=== PATIENT | female | born 1940 | race Caucasian/White ===

== ENCOUNTER → 2016-05-26 | Outpatient (CLI) | payer OTHER ==
[2016-05-26 09:36] LABS: HEMATOCRIT 36.8 % (37-47); MEAN CORPUSCULAR HEMOGLOBIN 28.9 pg (25-34); MEAN PLATELET VOLUME 10.3 fL (7.4-10.4); PLATELET COUNT 308 K/uL (130-400); RED BLOOD COUNT 4.33 M/uL (4.2-5.4); WHITE BLOOD COUNT 5.07 K/uL (4.8-10.8)
[2016-05-26 09:46] LABS: ALT/SGPT 17 U/L (12-78); AST/SGOT 14 U/L (15-37); BLOOD UREA NITROGEN 23 mg/dl (7-18); CALCIUM 8.8 mg/dl (8.5-10.1); CARBON DIOXIDE 30 mmol/L (21-32); CHLORIDE 105 mmol/L (98-107); GLUCOSE 84 mg/dl (70-99); POTASSIUM 4.7 mmol/L (3.5-5.1); SODIUM 143 mmol/L (136-145)
[2016-05-26 09:57] LABS: ALB/GLOB RATIO 0.8 (0.9-2); ALKALINE PHOSPHATASE 78 U/L (45-117)
--- NOTE | 2016-06-05 08:10 | CODING QUERY NO DIAGNOSIS ---
TREATMENT RENDERED WITHOUT A DIAGNOSIS : 1940 To promote full compliance with coding requirements relating to patient care, physician participation is requested in all cases of senior program analyst uncertainty. Please assist us with providing a diagnosis/symptom for the test(s) below: A diagnosis/symptom was not documented on your Order. A valid diagnosis/symptom is required to bill all insurances. Please remember that we are unable to code a diagnosis of rule out, probable, possible, questionable, or suspected. DOS: 05/26/16 Tests that require a diagnosis: * COMPREHENSIVE METABO DIAGNOSIS: * THRYOID STIMULATING DIAGNOSIS: * CBC W/O DIFF DIAGNOSIS: * VITAMIN B12 DIAGNOSIS: * VITAMIN D, 25-HYDROXY DIAGNOSIS: Provider Signature: Date: Thank you Pina Cannon [facility] Information Management Once completed, please kindly fax back to [phone] For questions please call [phone]
--- NOTE | 2016-06-17 12:30 | CODING QUERY MEDICAL NECESSITY ---
SUPPORTING DIAGNOSIS NEEDED Dr. Dsouza, A supporting diagnosis is required for the test/procedure performed on this patient in order for us to be reimbursed by the patient's insurance. Please provide a supporting diagnosis for the following test/procedure listed below next to the test name along with your signature. *If there is no additional diagnosis for this patient that would support the following test/procedure please document that below next to the test/procedure. Test(s)/Procedure(s) that require a supporting diagnosis: * ([id number]) B12 VITAMIN LEVEL DIAGNOSIS: DATE OF SERVICE: 05/26/16 Provider Signature: Date: Thank you Sammy Kunz [facility] Information Management Once completed, please kindly fax back to [phone] For questions please call [phone]
== END ==
LOC: C.LABUPUNI 09:08
PROVIDERS: ATTEND Family Medicine
DX: I10 Essential (primary) hypertension (principal); F41.9 Anxiety disorder, unspecified; E03.9 Hypothyroidism, unspecified; D64.9 Anemia, unspecified; E55.9 Vitamin D deficiency, unspecified; E13.9 Other specified diabetes mellitus without complications; F32.9 Major depressive disorder, single episode, unspecified

== ENCOUNTER → 2016-08-24 | Outpatient (CLI) | payer OTHER ==
--- NOTE | 2016-08-25 14:13 | CODING QUERY NO DIAGNOSIS ---
: 1940 TREATMENT RENDERED WITHOUT A DIAGNOSIS To promote full compliance with coding requirements relating to patient care, physician participation is requested in all cases of hcc coders uncertainty. Please assist us with providing a diagnosis/symptom for the test(s) below: A diagnosis/symptom was not documented on your Order. A valid diagnosis/symptom is required to bill all insurances. Please remember that we are unable to code a diagnosis of rule out, probable, possible, questionable, or suspected. Tests that require a diagnosis: DOS: 08/24/16 * Vitamin D, 25-Hydroxy DIAGNOSIS: Provider Signature: Date: Thank you Candace Craft [facility] Information Management Once completed, please kindly fax back to [phone] For questions please call [phone]
== END | disposition home or self-care (01) ==
LOC: C.LABUPUNI 09:30
PROVIDERS: ATTEND Family Medicine
DX: E55.9 Vitamin D deficiency, unspecified (principal)

== ENCOUNTER → 2016-09-11 | Outpatient (CLI) | payer OTHER | LOC: C.LABUPUNI 09:38 | PROVIDERS: ATTEND Family Medicine | DX: E03.9 Hypothyroidism, unspecified (principal) ==

== ENCOUNTER → 2016-10-15 | Outpatient (CLI) | payer OTHER ==
[2016-10-15 10:53] LABS: URINE APPEARANCE CLEAR (CLEAR); URINE BILIRUBIN NEG (NEG); URINE COLOR YELLOW; URINE NITRITE NEG (NEG); URINE SPECIFIC GRAVITY 1.014 (1.000-1.030); UROBILINOGEN NEG (NEG); ZZUR CULT IF INDIC CLEAN CATCH NO
[2016-10-15 10:56] LABS: MANUAL MICROSCOPIC REQUIRED? NO; REVIEW REQ? NO
== END ==
LOC: C.LABUPUNI 09:52
PROVIDERS: ATTEND Nurse Practitioner Family
DX: N39.0 Urinary tract infection, site not specified (principal)

== ENCOUNTER → 2016-11-06 | Outpatient (CLI) | payer OTHER ==
--- NOTE | 2016-11-25 07:19 | CODING QUERY MEDICAL NECESSITY ---
SUPPORTING DIAGNOSIS NEEDED Yonny PELAYO, A supporting diagnosis is required for the test/procedure performed on this patient in order for us to be reimbursed by the patient's insurance. Please provide a supporting diagnosis for the following test/procedure listed below next to the test name along with your signature. *If there is no additional diagnosis for this patient that would support the following test/procedure please document that below next to the test/procedure. Test(s)/Procedure(s) that require a supporting diagnosis: * ([id number]) B12 VITAMIN LEVEL DIAGNOSIS: DATE OF SERVICE: 11/06/16 Provider Signature: Date: Thank you Sammy Kunz Health Information Management Once completed, please kindly fax back to [phone] For questions please call [phone]
== END ==
LOC: C.LABUPNIT 07:48
PROVIDERS: ATTEND Nurse Practitioner Family
DX: E56.8 Deficiency of other vitamins (principal)

== ENCOUNTER → 2016-11-24 | Outpatient (CLI) | payer OTHER ==
--- NOTE | 2016-12-02 08:17 | CODING QUERY MEDICAL NECESSITY ---
SUPPORTING DIAGNOSIS NEEDED A supporting diagnosis is required for the test/procedure performed on this patient in order for us to be reimbursed by the patient's insurance. Please provide a supporting diagnosis for the following test/procedure listed below next to the test name along with your signature. *If there is no additional diagnosis for this patient that would support the following test/procedure please document that below next to the test/procedure. Test(s)/Procedure(s) that require a supporting diagnosis: * VITAMIN D, 25-HYDROXY DIAGNOSIS: Provider Signature: Date: Thank you Nancy Bolivar [employer] Information Management Once completed, please kindly fax back to [phone] For questions please call [phone]
== END ==
LOC: C.LABUPUNI 10:01
PROVIDERS: ATTEND Nurse Practitioner Family
DX: E56.8 Deficiency of other vitamins (principal); E55.9 Vitamin D deficiency, unspecified

== ENCOUNTER → 2017-01-08 | Outpatient (CLI) | payer OTHER ==
[2017-01-08 09:41] LABS: CHOLESTEROL/HDL RATIO 2.8; THYROID STIMULATING HORMONE 4.59 uIu/ml (0.300-4.500)
== END ==
LOC: C.LABUPUNI 08:13
PROVIDERS: ATTEND Nurse Practitioner Family
DX: E03.9 Hypothyroidism, unspecified (principal); E78.5 Hyperlipidemia, unspecified

== ENCOUNTER → 2017-03-12 | Outpatient (CLI) | payer OTHER | LOC: C.LABUPUNI 08:04 | PROVIDERS: ATTEND Nurse Practitioner Family | DX: E56.8 Deficiency of other vitamins (principal) ==

== ENCOUNTER → 2017-05-04 | Outpatient (CLI) | payer OTHER | END | disposition home or self-care (01) | LOC: C.LABUPUNI 08:11 | PROVIDERS: ATTEND Nurse Practitioner Family | DX: E03.9 Hypothyroidism, unspecified (principal) ==

== ENCOUNTER → 2017-06-12 | Outpatient (CLI) | payer OTHER | LOC: C.LABUPUNI 12:10 | PROVIDERS: ATTEND Nurse Practitioner Family | DX: E56.8 Deficiency of other vitamins (principal) ==

== ENCOUNTER → 2017-08-02 | Outpatient (CLI) | payer OTHER | END | disposition home or self-care (01) | LOC: C.LABUPUNI 08:17 | PROVIDERS: ATTEND Nurse Practitioner Family | DX: E03.9 Hypothyroidism, unspecified (principal) ==

== ENCOUNTER → 2017-09-09 | Outpatient (CLI) | payer OTHER | LOC: C.LABUPUNI 08:35 | PROVIDERS: ATTEND Nurse Practitioner Family | DX: E56.8 Deficiency of other vitamins (principal) ==

== ENCOUNTER → 2017-11-09 | Outpatient (CLI) | payer OTHER ==
[~2017-11-09] MED LIST: ACET-1311 PO; ACET-1693 PO; ALBINS/ INH; ASPI81TA28 PO; ATEN-173 PO; ATEN-175 PO; ATOR10TA82 PO; BISA10SU3 PR; CARBSOL4 OPB; CEFD300C2 PO; CHOL20009; DEXT20CA PO; DIVA1TAB86 PO; DIVA250T93 PO; GUAIFENESIN PO; IMD/2 PO; KLN/5 PO; LEVO100T PO; LISI-729 PO; MELO-84 PO; MOML PO; NAPR1TAB9 PO; QUET1TAB32 PO; TRAZ50TA35 PO
[2017-11-09 09:33] LABS: BASO % 0.6 %; BASO ABS # 0.03 K/uL (0-0.2); EOS ABS # 0.21 K/uL (0-0.5); HEMATOCRIT 34.6 % (37-47); HEMOGLOBIN 11.7 g/dL (12.0-16.0); IG# 0.01 K/uL (0.00-0.02); LYMPH ABS # 1.63 K/uL (1.2-3.4); MEAN CELL VOLUME 87.8 fL (80-100); MEAN CORPUSCULAR HEMOGLOBIN 29.7 pg (25-34); MEAN CORPUSCULAR HGB CONC 33.8 g/dl (32-36); MEAN PLATELET VOLUME 9.8 fL (7.4-10.4); MONO % 8.6 %; MONO ABS # 0.45 K/uL (0.11-0.59); NEUT % 55.6 %; NEUT ABS # 2.92 K/uL (1.4-6.5); PLATELET COUNT 350 K/uL (130-400); RED CELL DISTRIBUTION WIDTH CV 13.2 % (11.5-14.5); RED CELL DISTRIBUTION WIDTH SD 42.8 fL (36.4-46.3); WHITE BLOOD COUNT 5.25 K/uL (4.8-10.8)
== END ==
LOC: C.LABUPUNI 09:08
PROVIDERS: ATTEND Nurse Practitioner Family
DX: F03.91 Unspecified dementia, unspecified severity, with behavioral disturbance (principal)

== ENCOUNTER → 2017-11-10 | Outpatient (CLI) | payer OTHER ==
[2017-11-10 10:03] LABS: BLOOD UREA NITROGEN 22 mg/dl (7-18); CALCIUM 8.7 mg/dl (8.5-10.1); CARBON DIOXIDE 29 mmol/L (21-32); CREATININE 1.09 mg/dl (0.60-1.20); GLUCOSE 84 mg/dl (70-99); POTASSIUM 4.6 mmol/L (3.5-5.1); SODIUM 129 mmol/L (136-145)
== END | disposition home or self-care (01) ==
LOC: C.LABUPUNI 09:04
PROVIDERS: ATTEND Nurse Practitioner Family
DX: E03.9 Hypothyroidism, unspecified (principal); F33.8 Other recurrent depressive disorders; Z51.81 Encounter for therapeutic drug level monitoring; Z79.899 Other long term (current) drug therapy

== ENCOUNTER → 2017-11-30 | Outpatient (CLI) | payer OTHER | LOC: C.LABUPUNI 13:49 | PROVIDERS: ATTEND Nurse Practitioner Family | DX: N36.9 Urethral disorder, unspecified (principal) ==

== ENCOUNTER 2017-12-01 13:32 | Emergency (ER) | payer OTHER ==
[~2017-12-01] VITALS: Ht 165.1 cm; Wt 74.2 kg
[2017-12-01 13:49] VITALS: TEMP 36.4; Ht 165.1 cm; Wt 74.2 kg
--- NOTE | 2017-12-01 14:38 | DIAGNOSTIC IMAGING REPORT ---
CT SCAN OF THE BRAIN WITHOUT IV CONTRAST CLINICAL HISTORY: Weakness. Change in mental status. COMPARISON STUDY: No priors. TECHNIQUE: Unenhanced axial CT scan of the brain is performed from the vertex to the skull base. A dose lowering technique was utilized adhering to the principles of ALARA. The patient was scanned twice due to motion artifact. Motion artifact compromises the examination. CT DOSE: 900.28 mGy.cm FINDINGS: Brain parenchyma: There are age-related involutional changes noting mild to moderate patchy subcortical and periventricular microangiopathic change. There is no hemorrhage, mass effect, or evidence of acute territorial ischemia by CT criteria. Brasher-white matter is preserved. No extra-axial fluid collection is seen. Ventricles, sulci, cisterns: Prominent secondary to involutional change. Intracranial vasculature: There is atherosclerotic calcification of the cavernous carotid and vertebral arteries. Calvarium: Unremarkable. Sinuses and mastoids: The visualized paranasal sinuses are clear. The mastoid air cells are well pneumatized. Orbits: The bony orbits are grossly intact. IMPRESSION: There is no hemorrhage, mass effect, or evidence of acute territorial ischemia by CT criteria noting a motion compromised examination. Electronically signed by: Yair Parmar M.D. 12/01/2017 2:37 PM Dictated Date/Time: 12/01/2017 2:33 PM
--- NOTE | 2017-12-01 14:41 | DIAGNOSTIC IMAGING REPORT ---
SINGLE VIEW CHEST CLINICAL HISTORY: Weakness. Change in mental status. FINDINGS: An AP, portable, upright chest radiograph is obtained. No prior studies are available for comparison at the time of dictation. The examination is degraded by portable technique and patient rotation. The cardiomediastinal silhouette is unremarkable noting atherosclerotic calcification of the thoracic aorta. Nonspecific interstitial thickening is likely chronic. Trace pleural effusions are suspected with bibasilar atelectasis. No airspace consolidation is seen typical for pneumonia. No pneumothorax is seen. The skeletal structures are osteopenic. The bony thorax is grossly intact. IMPRESSION: 1. There is no airspace consolidation typical for pneumonia. 2. Suspect trace pleural effusions. Electronically signed by: Yair Parmar M.D. 12/01/2017 2:40 PM Dictated Date/Time: 12/01/2017 2:39 PM
[2017-12-01 15:09] LABS: BASO % 0.5 %; BASO ABS # 0.04 K/uL (0-0.2); EOS % 2.7 %; EOS ABS # 0.22 K/uL (0-0.5); HEMATOCRIT 35.8 % (37-47); HEMOGLOBIN 12.2 g/dL (12.0-16.0); LYMPH % 21.6 %; LYMPH ABS # 1.75 K/uL (1.2-3.4); MEAN CELL VOLUME 88.4 fL (80-100); MEAN CORPUSCULAR HEMOGLOBIN 30.1 pg (25-34); MEAN CORPUSCULAR HGB CONC 34.1 g/dl (32-36); MEAN PLATELET VOLUME 9.3 fL (7.4-10.4); MONO % 9.2 %; MONO ABS # 0.75 K/uL (0.11-0.59); NEUT ABS # 5.36 K/uL (1.4-6.5); PLATELET COUNT 320 K/uL (130-400); RED CELL DISTRIBUTION WIDTH CV 13.1 % (11.5-14.5); RED CELL DISTRIBUTION WIDTH SD 42.7 fL (36.4-46.3); WHITE BLOOD COUNT 8.12 K/uL (4.8-10.8)
[2017-12-01 15:38] LABS: ALBUMIN 3.4 gm/dl (3.4-5.0); ALKALINE PHOSPHATASE 74 U/L (45-117); ALT/SGPT 17 U/L (12-78); AST/SGOT 20 U/L (15-37); BLOOD UREA NITROGEN 25 mg/dl (7-18); CARBON DIOXIDE 28 mmol/L (21-32); GLUCOSE 96 mg/dl (70-99); POTASSIUM 4.4 mmol/L (3.5-5.1); SODIUM 131 mmol/L (136-145); TOTAL PROTEIN 7.4 gm/dl (6.4-8.2)
[2017-12-01] MEDS ORDERED: LISI-729 PO (15:48)
[2017-12-01] MEDS ORDERED: ATEN-175 PO (15:48)
[2017-12-01] MEDS ORDERED: DIVA1TAB86 PO (15:48)
[2017-12-01] MEDS ORDERED: ATEN-173 PO (15:48)
[2017-12-01] MEDS ORDERED: ATOR10TA82 PO (15:48)
[2017-12-01] MEDS ORDERED: LEVO100T PO (15:48)
[2017-12-01] MEDS ORDERED: ASPI81TA28 PO (15:48)
[2017-12-01] MEDS ORDERED: CEFTRIAXONE SOD INJ 1 GM ADDVIAL IV STA (16:04)
[2017-12-01] MEDS ORDERED: SODIUM CHLORIDE 0.9% 500ML 500 ML IV STA (16:06)
[2017-12-01] MEDS ORDERED: ALBINS/ INH (16:15)
[2017-12-01] MEDS ORDERED: DEXT20CA PO (16:15)
[2017-12-01] MEDS ORDERED: BISA10SU3 PR (16:15)
[2017-12-01] MEDS ORDERED: MOML PO (16:15)
[2017-12-01] MEDS ORDERED: IMD/2 PO (16:15)
[2017-12-01] MEDS ORDERED: MELO-84 PO (16:15)
[2017-12-01] MEDS ORDERED: NAPR1TAB9 PO (16:15)
[2017-12-01] MEDS ORDERED: CARBSOL4 OPB (16:15)
[2017-12-01] MEDS ORDERED: CHOL20009 (16:15)
[2017-12-01] MEDS ORDERED: KLN/5 PO (16:15)
[2017-12-01] MEDS ORDERED: QUET1TAB32 PO (16:15)
[2017-12-01] MEDS ORDERED: DIVA250T93 PO (16:15)
[2017-12-01] MEDS ORDERED: GUAIFENESIN PO (16:15)
[2017-12-01] MEDS ORDERED: TRAZ50TA35 PO (16:15)
[2017-12-01] MEDS ORDERED: ACET-1693 PO (16:15)
[2017-12-01] MEDS ORDERED: ACET-1311 PO (16:15)
[2017-12-01 17:04] VITALS: BP 164/80; PULSE 93; O2SAT 99
--- NOTE | 2017-12-01 17:05 | DIAGNOSTIC IMAGING REPORT ---
ABD/PELVIS NO IV OR ORAL CONT CT DOSE: 920.90 mGy.cm HISTORY: Hematuria hematuria TECHNIQUE: Multiaxial CT images of the abdomen and pelvis were performed without contrast. A dose lowering technique was utilized adhering to the principles of ALARA. COMPARISON STUDY: None. FINDINGS: Limited exam as the patient could not tolerate the procedure. Minimal bibasilar interstitial change. Liver spleen and pancreas are grossly unremarkable. Kidneys negative for calcification or hydronephrosis. The bowel pattern throughout is considered nonobstructive. Bladder is midline. There are no bladder calcifications. Inguinal regions are unremarkable. There is no evidence for pneumatosis or free air. IMPRESSION: No acute process. The above report was generated using voice recognition software. It may contain grammatical, syntax or spelling errors. Electronically signed by: Dallin Watson M.D. 12/01/2017 5:03 PM Dictated Date/Time: 12/01/2017 5:01 PM
[2017-12-01] MEDS ORDERED: CEFD300C2 PO (17:29)
--- NOTE | 2017-12-01 18:21 | EMERGENCY ROOM VISIT NOTE ---
History Report prepared by Darrell: Caitlyn Alcaraz Under the Supervision of: Dr. Jace Anguiano D.O. First contact with patient: 13:52 Chief Complaint: MENTAL HEALTH EVALUATION Stated Complaint: MENTAL HEALTH History of Present Illness The patient is a 77 year old female who presents to the Emergency Room for a mental health evaluation. Per the psych casework specialist, the patient is fixated on chocolate milk. She reports that the patient has Dementia and recently had a UTI on November 09. She states that the patient has had increased confusion and the home she stays at is concerned it is due to another UTI. She notes that the patient is on Depakote and recently had a medication change due to her recent repetitive statement of "chocolate milk" starting yesterday. The patient states that she just wants "chocolate milk." She reports that she is unsure what building she is in, but knows that the year is "chocolate milk" and she was [place] the city [place] The patient notes that she has taken all her medications today. The patient denies fever and shortness of breath. Source of History: patient, nursing staff Onset: yesterday Position: head Quality: other (mental helath) Timing: worsening Associated Symptoms: No fevers, No SOB Note: The patient's senior care complains of the patient having increased confusion. Review of Systems See HPI for pertinent positives & negatives. A total of 10 systems reviewed and were otherwise negative. Past Medical & Surgical Medical Problems: (1) Dementia (2) Hx: UTI (urinary tract infection) Family History No pertinent family history Social History Smoking Status: Unknown if Ever Smoked Marital Status: single Housing Status: senior care Occupation Status: retired Current/Historical Medications Scheduled Acetaminophen Tab (Tylenol), 650 MG PO TID Aspirin (Aspirin Ec), 81 MG PO DAILY Atenolol (Tenormin), 25 MG PO DAILY Atorvastatin (Lipitor), 10 MG PO QPM Bisacodyl (Dulcolax), 1 SUPP [place] PRN UD Cefdinir (Omnicef), 300 MG PO Q12H Cholecalciferol (Vitamin D), 2 TABS DAILY Clonazepam (Klonopin), 0.25 MG PO BID Dextromethorphan Hbr-Quinidine (Nuedexta), 1 CAP PO DAILY Divalproex Sodium (Depakote Delay Rel), 125 MG PO DAILY Divalproex Sodium (Depakote Delay Rel), 250 MG PO BID Levothyroxine Sodium (Synthroid), 100 MCG PO DAILY Lisinopril (Zestril), 5 MG PO DAILY Magnesium Hydroxide (Milk Of Magnesia), 30 ML PO PRN UD Meloxicam (Mobic), 15 MG PO DAILY Quetiapine Fumarate (Seroquel), 75 MG PO TID Trazodone Hcl (Trazodone), 50 MG PO HS Scheduled PRN Acetaminophen (Tylenol), 650 MG PO Q2H PRN for PAIN 1-5, TEMP Albuterol Sulf (Proventil 0.083% 2.5MG/3ML), 2.5 MG INH Q6 PRN for CONGESTION Carboxymethylcellulose Sodium (Theratears), 1 DROP OPB TID PRN for DRY EYES Loperamide Hcl (Imodium), 2 MG PO Q8 PRN for Diarrhea Naproxen (Aleve), 440 MG PO Q8 PRN for Pain [Guaifenesin 200MG/10], 10 ML PO Q6 PRN for Cough Allergies Coded Allergies: Codeine (Verified Allergy, Unknown, UNKNOWN, 12/01/17) Hydrocodone (Verified Allergy, Unknown, UNKNOWN, 12/01/17) Physical Exam Vital Signs Date Time Temp Pulse Resp B/P (MAP) Pulse Ox O2 Delivery O2 Flow Rate FiO2 12/01/17 17:04 93 18 164/80 99 Room Air 12/01/17 15:38 82 18 115/83 98 Room Air 12/01/17 13:49 36.4 83 20 158/80 99 Room Air Physical Exam GENERAL: Patient is awake, alert, but talking to self when we entered the room. EYES: The conjunctivae are clear. The pupils are round and reactive. EARS, NOSE, MOUTH AND THROAT: The nose is without any evidence of any deformity. Mucous membranes are moist. Tongue is midline NECK: The neck is nontender and supple. RESPIRATORY: Normal respiratory effort is noted. Diminished throughout with scattered rhonchi in all [place]. No tachypnea or conversational dyspnea appreciated. CARDIOVASCULAR: Regular rate and rhythm noted. There no murmurs rubs or gallops normal S1 normal S2 GASTROINTESTINAL: The abdomen is soft. Bowel sounds are present in all quadrants. Abdomen is nontender. MUSCULOSKELETAL/EXTREMITIES: There is no evidence of gross deformity. Full range of motion is noted in the hips and shoulders. SKIN: There is no obvious evidence of any rash. There are no petechiae, pallor or cyanosis noted. Trace pedal edema bilaterally. NEUROLOGIC: Patient is awake alert and oriented to person, but not place or time. Patient speaks clearly, but inserts the word "chocolate milk" randomly, but carries on the conversation as normal. No facial droop appreciated. Strength is symmetric in bilateral lower extremities. No drift appreciated. Medical Decision & Procedures ER Provider Diagnostic Interpretation: Radiology results as stated below per my review and radiologist interpretation: CT SCAN OF THE BRAIN WITHOUT IV CONTRAST CLINICAL HISTORY: Weakness. Change in mental status. COMPARISON STUDY: No priors. TECHNIQUE: Unenhanced axial CT scan of the brain is performed from the vertex to the skull base. A dose lowering technique was utilized adhering to the principles of ALARA. The patient was scanned twice due to motion artifact. Motion artifact compromises the examination. CT DOSE: 900.28 mGy.cm FINDINGS: Brain parenchyma: There are age-related involutional changes noting mild to moderate patchy subcortical and periventricular microangiopathic change. There is no hemorrhage, mass effect, or evidence of acute territorial ischemia by CT criteria. Brasher-white matter is preserved. No extra-axial fluid collection is seen. Ventricles, sulci, cisterns: Prominent secondary to involutional change. Intracranial vasculature: There is atherosclerotic calcification of the cavernous carotid and vertebral arteries. Calvarium: Unremarkable. Sinuses and mastoids: The visualized paranasal sinuses are clear. The mastoid air cells are well pneumatized. Orbits: The bony orbits are grossly intact. IMPRESSION: There is no hemorrhage, mass effect, or evidence of acute territorial ischemia by CT criteria noting a motion compromised examination. Electronically signed by: Yair Parmar M.D. 12/01/2017 2:37 PM Dictated Date/Time: 12/01/2017 2:33 PM SINGLE VIEW CHEST CLINICAL HISTORY: Weakness. Change in mental status. FINDINGS: An AP, portable, upright chest radiograph is obtained. No prior studies are available for comparison at the time of dictation. The examination is degraded by portable technique and patient rotation. The cardiomediastinal silhouette is unremarkable noting atherosclerotic calcification of the thoracic aorta. Nonspecific interstitial thickening is likely chronic. Trace pleural effusions are suspected with bibasilar atelectasis. No airspace consolidation is seen typical for pneumonia. No pneumothorax is seen. The skeletal structures are osteopenic. The bony thorax is grossly intact. IMPRESSION: 1. There is no airspace consolidation typical for pneumonia. 2. Suspect trace pleural effusions. Electronically signed by: Yair Parmar M.D. 12/01/2017 2:40 PM Dictated Date/Time: 12/01/2017 2:39 PM ABD/PELVIS NO IV OR ORAL CONT CT DOSE: 920.90 mGy.cm HISTORY: Hematuria hematuria TECHNIQUE: Multiaxial CT images of the abdomen and pelvis were performed without contrast. A dose lowering technique was utilized adhering to the principles of ALARA. COMPARISON STUDY: None. FINDINGS: Limited exam as the patient could not tolerate the procedure. Minimal bibasilar interstitial change. Liver spleen and pancreas are grossly unremarkable. Kidneys negative for calcification or hydronephrosis. The bowel pattern throughout is considered nonobstructive. Bladder is midline. There are no bladder calcifications. Inguinal regions are unremarkable. There is no evidence for pneumatosis or free air. IMPRESSION: No acute process. The above report was generated using voice recognition software. It may contain grammatical, syntax or spelling errors. Electronically signed by: Dallin Watson M.D. 12/01/2017 5:03 PM Dictated Date/Time: 12/01/2017 5:01 PM Laboratory Results 12/01/17 14:50 Red Blood Count 4.05, Mean Corpuscular Volume 88.4, Mean Corpuscular Hemoglobin 30.1, Mean Corpuscular Hemoglobin Concent 34.1, Mean Platelet Volume 9.3, Neutrophils (%) (Auto) 66.0, Lymphocytes (%) (Auto) 21.6, Monocytes (%) (Auto) 9.2, Eosinophils (%) (Auto) 2.7, Basophils (%) (Auto) 0.5, Neutrophils # (Auto) 5.36, Lymphocytes # (Auto) 1.75, Monocytes # (Auto) 0.75, Eosinophils # (Auto) 0.22, Basophils # (Auto) 0.04 12/01/17 14:50 Test 12/01/17 14:17 12/01/17 14:50 Urine Color YELLOW Urine Appearance TURBID (CLEAR) Urine pH 5.0 (4.5-7.5) Urine Specific [place] 1.016 (1.000-1.030) Urine Protein TRACE (NEG) Urine Glucose (UA) NEG (NEG) Urine Ketones TRACE (NEG) Urine Occult Blood 3+ (NEG) Urine Nitrite POS (NEG) Urine Bilirubin NEG (NEG) Urine Urobilinogen NEG (NEG) Urine Leukocyte Esterase LARGE (NEG) Urine WBC (Auto) >30 /hpf (0-5) Urine RBC (Auto) >30 /hpf (0-4) Urine Hyaline Casts (Auto) 0 /lpf (0-5) Urine Epithelial Cells (Auto) >30 /lpf (0-5) Urine Bacteria (Auto) 3+ (NEG) Urine Pathogenic Casts /lpf (0) Urine Yeast (Auto) (NONE PRSENT) Urine Opiates Screen NEG (NEG) Urine Methadone, Qualitative NEG (NEG) Urine Barbiturates NEG (NEG) Urine Phencyclidine (PCP) Level NEG (NEG) Ur Amphetamine/Methamphetamine NEG (NEG) MDMA (Ecstasy) Screen POS (NEG) Urine Benzodiazepines Screen NEG (NEG) Urine Cocaine Metabolite NEG (NEG) Urine Marijuana (THC) NEG (NEG) White Blood Count 8.12 K/uL (4.8-10.8) Red Blood Count 4.05 M/uL (4.2-5.4) Hemoglobin 12.2 g/dL (12.0-16.0) Hematocrit 35.8 % (37-47) Mean Corpuscular Volume 88.4 fL (80-100) Mean Corpuscular Hemoglobin 30.1 pg (25-34) Mean Corpuscular Hemoglobin Concent 34.1 g/dl (32-36) Platelet Count 320 K/uL (130-400) Mean Platelet Volume 9.3 fL (7.4-10.4) Neutrophils (%) (Auto) 66.0 % Lymphocytes (%) (Auto) 21.6 % Monocytes (%) (Auto) 9.2 % Eosinophils (%) (Auto) 2.7 % Basophils (%) (Auto) 0.5 % Neutrophils # (Auto) 5.36 K/uL (1.4-6.5) Lymphocytes # (Auto) 1.75 K/uL (1.2-3.4) Monocytes # (Auto) 0.75 K/uL (0.11-0.59) Eosinophils # (Auto) 0.22 K/uL (0-0.5) Basophils # (Auto) 0.04 K/uL (0-0.2) RDW Standard Deviation 42.7 fL (36.4-46.3) RDW Coefficient of Variation 13.1 % (11.5-14.5) Immature Granulocyte % (Auto) 0.0 % Immature Granulocyte # (Auto) 0.00 K/uL (0.00-0.02) Prothrombin Time 10.5 SECONDS (9.0-12.0) Prothromb Time International Ratio 1.0 (0.9-1.1) Activated Partial Thromboplast Time 28.0 SECONDS (21.0-31.0) Partial Thromboplastin Ratio 1.1 Anion Gap 7.0 mmol/L (3-11) Est Creatinine Clear Calc Drug Dose 49.0 ml/min Estimated GFR () 63.8 Estimated GFR (Non- 55.1 BUN/Creatinine Ratio 24.6 (10-20) Calcium Level 9.0 mg/dl (8.5-10.1) Magnesium Level 1.9 mg/dl (1.8-2.4) Total Bilirubin 0.2 mg/dl (0.2-1) Direct Bilirubin < 0.1 mg/dl (0-0.2) Aspartate Amino Transf (AST/SGOT) 20 U/L (15-37) Alanine Aminotransferase (ALT/SGPT) 17 U/L (12-78) Alkaline Phosphatase 74 U/L (45-117) Ammonia < 10.0 umol/L (11-32) Total Creatine Kinase 210 U/L (26-192) Troponin I < 0.015 ng/ml (0-0.045) Total Protein 7.4 gm/dl (6.4-8.2) Albumin 3.4 gm/dl (3.4-5.0) Thyroid Stimulating Hormone (TSH) 1.110 uIu/ml (0.300-4.500) Valproic Acid (Depakene) Level 92 mcg/ml (50-100) Laboratory results per my review. Medications Administered Medications (Trade) Dose Ordered Sig/Marilu Route Start Time Stop Time Status Last Admin Dose Admin Ceftriaxone Sodium (Rocephin Inj) 1 gm NOW STAT IV 12/01/17 16:04 12/01/17 16:06 DC 12/01/17 16:04 1 GM Sodium Chloride 500 ml @ 999 mls/hr Q31M STAT IV 12/01/17 16:06 12/01/17 16:36 DC 12/01/17 16:06 999 MLS/HR ECG Per My Interpretation Indication: altered mental status Rate (beats per minute): 78 Rhythm: normal sinus Findings: no ectopy, other (no acute ST segements) Comparison ECG Date: no prior available ED Course 1357: The patient was evaluated in room A7. A complete history and physical examination were performed. 1604: Ordered Rocephin Inj 1 gm IV. 1606: Ordered NSS 500 ml @ 999 mls/hr IV. 1607: I spoke to the patient's daughter at this time and updated her on the test results this far. 1729: Upon reevaluation, the patient is resting comfortably. I discussed the results and treatment plan with her and her daughter. They verbalized agreement of the treatment plan. The patient was discharged home. Medical Decision Differential diagnosis: Etiologies such as metabolic, infection, hypoglycemia, electrolyte abnormalities , cardiac sources, intracerebral event, toxicologic, neurologic, as well as others were entertained. Nursing notes reviewed. Additional history is obtained from the patient's daughter. The patient is a 77-year-old female who presented to the emergency department for an evaluation of altered mental status. The patient started having episodes where she would continually repeat the phrase "chocolate milk". She even it seemed to be inserting this phrase in her normal conversation. Initially I thought this could be consistent with a central nervous system abnormality such as a stroke but the patient continued to say these phrases throughout yesterday into today. When her daughter presented to the emergency department she seemed to feel that this was not too far from the patient's baseline mental status. The patient was medically cleared in the emergency department. She was sent to the emergency department specifically for a mental health evaluation. She appears to have signs of urinary tract infection. She was given IV antibiotics and urine was sent for culture. She was also treated with IV fluids. I discussed patient's laboratory and radiographic studies with her and her daughter. She was evaluated by the mental health casework specialist. She was referred to [facility] but was not felt to be a good candidate for inpatient treatment at this time. I discussed her case with the emergency department casework specialist. They were able to call the patient's senior care and they were able to receive her back. They were encouraged to continue all medications as prescribed and follow-up with the primary care physician. They were also encouraged to return to the emergency department immediately if symptoms change worsen or the need arises. Medication Reconcilliation Current Medication List: was personally reviewed by me Blood Pressure Screening Patient's blood pressure: Elevated blood pressure Blood pressure disposition: Elevated BP felt to be situational Impression Primary Impression: Altered mental status Additional Impression: UTI (urinary tract infection) Scribe Attestation The scribe's documentation has been prepared under my direction and personally reviewed by me in its entirety. I confirm that the note above accurately reflects all work, treatment, procedures, and medical decision making performed by me. Departure Information Dispostion Home / Self-Care Prescriptions Cefdinir (OMNICEF) 300 Mg Cap 300 MG PO Q12H, #14 CAP Prov: Jace Anguiano, DO 12/01/17 Referrals [facility] (PCP) Forms HOME CARE DOCUMENTATION FORM, IMPORTANT VISIT INFORMATION Patient Instructions My [facility] Additional Instructions Continue all medications as prescribed. Follow-up with the primary care physician as soon as possible. Return to the emergency department immediately if symptoms change worsen or the need arises. Problem Qualifiers
== END 2017-12-01 17:30 | disposition home or self-care (01) ==
LOC: EDBD 13:32 → C.EDA 13:33
DX: R41.82 Altered mental status, unspecified (principal); N39.0 Urinary tract infection, site not specified; F03.90 Unspecified dementia, unspecified severity, without behavioral disturbance, psychotic disturbance, mood disturbance, and anxiety; Z79.82 Long term (current) use of aspirin; Z88.5 Allergy status to narcotic agent

== ENCOUNTER → 2017-12-01 | Outpatient (CLI) | payer OTHER ==
[2017-12-01 08:33] LABS: HEMATOCRIT 33.1 % (37-47); HEMOGLOBIN 11.2 g/dL (12.0-16.0); MEAN CELL VOLUME 88.7 fL (80-100); MEAN CORPUSCULAR HGB CONC 33.8 g/dl (32-36); MEAN PLATELET VOLUME 9.6 fL (7.4-10.4); PLATELET COUNT 316 K/uL (130-400); RED CELL DISTRIBUTION WIDTH CV 13.2 % (11.5-14.5); RED CELL DISTRIBUTION WIDTH SD 43.2 fL (36.4-46.3); WHITE BLOOD COUNT 7.64 K/uL (4.8-10.8)
[2017-12-01 08:51] LABS: BLOOD UREA NITROGEN 25 mg/dl (7-18); CREATININE 1.05 mg/dl (0.60-1.20); GLUCOSE 74 mg/dl (70-99)
[2017-12-01 08:52] LABS: CALCIUM 8.9 mg/dl (8.5-10.1); CARBON DIOXIDE 29 mmol/L (21-32); POTASSIUM 4.5 mmol/L (3.5-5.1); SODIUM 133 mmol/L (136-145)
== END ==
LOC: C.LABUPNIT 07:55
PROVIDERS: ATTEND Nurse Practitioner Family
DX: I10 Essential (primary) hypertension (principal); F02.81 Dementia in other diseases classified elsewhere, unspecified severity, with behavioral disturbance; E03.9 Hypothyroidism, unspecified

== ENCOUNTER → 2017-12-09 | Outpatient (CLI) | payer OTHER ==
[~2017-12-09] MED LIST changes: -ATEN-175 PO
== END ==
LOC: C.LABUPUNI 09:01
PROVIDERS: ATTEND Nurse Practitioner Family
DX: E03.9 Hypothyroidism, unspecified (principal)

== ENCOUNTER → 2017-12-16 | Outpatient (CLI) | payer OTHER ==
[~2017-12-16] MED LIST changes: -CEFD300C2 PO
== END ==
LOC: C.LABUPUNI 07:37
PROVIDERS: ATTEND Nurse Practitioner Family
DX: E56.8 Deficiency of other vitamins (principal)

== ENCOUNTER 2018-06-11 16:14 | Inpatient (IN) ==
[2018-06-11] MEDS ORDERED: HYDROmorphone INJ 0.5 MG/0.5 ML SYR IV PRN (16:17)
[2018-06-11] MEDS ORDERED: SODIUM CHLORIDE 0.9% 1000ML 1,000 ML IV SCH (16:30)
[2018-06-11 16:41] LABS: Basophils # (auto) 0.02 K/uL (0-0.2); Basophils % (auto) 0.4 %; Eosinophils # (auto) 0.04 K/uL (0-0.5); Eosinophils % (auto) 0.7 %; Hemoglobin 10.9 g/dL (12.0-16.0); Immature Granulocytes # (auto) 0.01 K/uL (0.00-0.02); Immature Granulocytes % (auto) 0.2 %; Lymphocytes # (auto) 1.11 K/uL (1.2-3.4); Lymphocytes % (auto) 20.3 %; Mean Corpuscular Hgb Conc 34.1 g/dL (32-36); Mean Corpuscular Volume 88.6 fL (80-100); Mean Platelet Volume 8.8 fL (7.4-10.4); Monocytes # (auto) 0.58 K/uL (0.11-0.59); Monocytes % (auto) 10.6 %; Neutrophils # (auto) 3.71 K/uL (1.4-6.5); Neutrophils % (auto) 67.8 %; Platelet Count 320 K/uL (130-400); RDW Coefficient of Variation 13.7 % (11.5-14.5); RDW Standard Deviation 44.5 fL (36.4-46.3); Red Blood Count 3.61 M/uL (4.2-5.4); White Blood Count 5.47 K/uL (4.8-10.8)
[2018-06-11] MEDS: fentaNYL citrate 100 MCG/2 ML VIAL IV PRN ×2 (16:46→19:09)
[2018-06-11 16:49] LABS: INR 1.1 (0.9-1.1); Partial Thromboplastin Ratio 1.1; Partial Thromboplastin Time 28.5 Seconds (21.0-31.0)
[2018-06-11 16:57] LABS: BUN Creatinine Ratio 13.1 (10-20); Blood Urea Nitrogen 12 mg/dl (7-18); Calcium 8.3 mg/dl (8.5-10.1); Carbon Dioxide 28 mmol/L (21-32); Chloride 88 mmol/L (98-107); Est GFR (African American) 70.6; Est GFR (Non-African American) 60.9; Glucose 103 mg/dl (70-99); Potassium 4.7 mmol/L (3.5-5.1); Sodium 122 mmol/L (136-145)
--- NOTE | 2018-06-11 17:58 | XRay Report ---
XR hip RT min 2V CLINICAL HISTORY: Fall. Right hip pain. COMPARISON STUDY: None. FINDINGS: Comminuted intertrochanteric fracture within the proximal right femur. This demonstrates mi ld superior displacement. No dislocation. The visualized pelvic bones are intact. IMPRESSION: Right femoral intertrochanteric fracture. Electronically signed by: Jameel Aguirre M.D. 06/11/2018 5:56 PM
--- NOTE | 2018-06-11 19:00 | History & Physical Report ---
Date of Service June 11, 2018 Assessment & Plan (1) Intertrochanteric fracture of right hip: 76 y/o F Hx advanced dementia, psuedobulbar affect, HTN, HLD, depression/ anxiety, hypothyroidism. She presents from a dementia unit of a long term where she suffered a fall and was not able to ambulate following. On arrival to the ER a R intertrochanteric fracture was confirmed. The pt cannot communicate and exhibits disruptive behavior. this is apparently her baseline. She does ambulate independently. Initial labs are notable for hyponatremia with a sodium of 122. 1) Hip fracture - she will need her sodium corrected but otherwise does not seem to have any significant risk factors for surgery. Her RCRI is 0.4% and she will not require additional cardiovascular workup. She is admitted with a hip fracture protocol. 2) Hyponatremia - receiving NS - we will trend her sodium overnight. 3) Pseudobulbar affect - it is advised that she remain on Depakote and Nuedexta 4) Regarding her code status and advanced dementia - she is technically comfort measures only, however, her daughter will reverse the status for surgery as this is a procedure that is being performed for comfort. Final discretion is to the orthopedic service upon discussion with daughter. It should be kept in mind that she will not be able to participate in any rehab. We have provided sedatives and one to one obs for the duration of her hospital stay. DNR - full code for surgery only Total time for this admit including review of labs, meds, imaging, records - discussion with pt's daughter (POA) 38 min Present on Admission?: Yes History of Present Illness Chief Complaint: Hip fracture R, hyponatremia Primary Care Provider: [facility] 76 y/o F Hx advanced dementia, psuedobulbar affect, HTN, HLD, depression/anxiety , hypothyroidism. She presents from a dementia unit of a long term where she suffered a fall and was not able to ambulate following. On arrival to the ER a R intertrochanteric fracture was confirmed. The pt cannot communicate and exhibits disruptive behavior. this is apparently her baseline. She does ambulate independently. Initial labs are notable for hyponatremia with a sodium of 122. PMH: 1) Advanced dementia - unknown etiology - onset at age 70 - exhibits psychotic features 2) Hypothroidism 3) HTN 4) HLD 5) Pseudobulbar affect 6) Depression/anxiety Surgical: Limited to carpal release Social: Quit smoking 25 years ago, does not drink - resides in a dementia unit Family: Father - colon CA Mother - comlications of dementia Allergies Allergy/AdvReac Type Severity Reaction Status Date / Time codeine Allergy Unknown UNKNOWN Verified 06/11/18 17:20 hydrocodone Allergy Unknown UNKNOWN Verified 06/11/18 17:20 Home Medications Home Medications Medication Instructions Recorded Confirmed Type acetaminophen 650 mg PO TID PRN 06/11/18 06/11/18 History aspirin [Aspirin Low Dose] 81 mg PO DAILY 06/11/18 06/11/18 History atenolol 25 mg PO DAILY 06/11/18 06/11/18 History cholecalciferol (vitamin D3) 2,000 unit PO DAILY 06/11/18 06/11/18 History [Vitamin D3] cholestyramine (with sugar) 4 g PO DAILY 06/11/18 06/11/18 History [Questran] dextromethorphan-quinidine 1 cap PO Q12H 06/11/18 06/11/18 History [Nuedexta] divalproex [Depakote] 125 mg PO DAILY 06/11/18 06/11/18 History divalproex [Depakote] 250 mg PO BID 06/11/18 06/11/18 History lactobacillus combination no.4 1 tab PO DAILY 06/11/18 06/11/18 History [Probiotic] levothyroxine 100 mcg PO DAILY 06/11/18 06/11/18 History lisinopril 5 mg PO DAILY 06/11/18 06/11/18 History meloxicam [Mobic] 15 mg PO DAILY 06/11/18 06/11/18 History sertraline [Zoloft] 50 mg PO DAILY 06/11/18 06/11/18 History Past Med/Surg History Medical History Dementia Hx: UTI (urinary tract infection) Altered mental status (Acute) Schizophrenia Family History Other No significant family history Social History Feels Safe at Home: Yes Smoking Status: Unknown if ever smoked Review of Systems Cannot obtain Physical Exam 2 Vital Signs (Past 24 Hours): Last Vital Signs Temp 36.6 C 06/11/18 16:21 Pulse 71 06/11/18 18:40 Resp 22 06/11/18 18:40 BP 117/73 06/11/18 18:32 Pulse Ox 99 02/16/19 18:40 Physical Exam: General: Completely disoriented, elderly female, rapid incomprehensible speech, appears agitated ENT: No erythema or exudates, no thrush Eyes: KEM, EOMI Head and neck: Normocephalic, atraumatic, No JVD, neck is supple. Chest/heart: Nontender chest - cannot examine heart sounds due to persistent talking Lungs: Cannot examine due to inability to comply Abdomen: Nontender, nondistended, BS+ Neuro: Disoriented at baseline - not able to communicate - does not exhibit unilateral deficits Musculoskeletal: R extrem, external rotation, shortening Skin: No acute rashes or ulcers Extremities: No clubbing, cyanosis, edema Results & Data Diagnostic Findings XR hip: Right femoral intertrochanteric fracture. _ (1) Intertrochanteric fracture of right hip Encounter type: initial encounter Fracture alignment: displaced Fracture healing: Fracture type: closed Open fracture type: Qualified Code(s): S72.141A - Displaced intertrochanteric fracture of right femur, initial encounter for closed fracture
[2018-06-11 19:30] LABS: Appearance Urine Cloudy (Clear); Bacteria Urine Automated 4+ (Negative); Bilirubin Urine Negative (Negative); Color Urine Yellow; Glucose Urine UA Negative (Negative); Ketones Urine Trace (Negative); Leukocyte Esterase Urine 3+ (Negative); Nitrite Urine Positive (Negative); Protein Urine Negative (Negative); Specific Gravity Urine 1.012 (1.000-1.030); Urobilinogen Urine Negative (Negative); WBC Urine Automated >30 /hpf (0-5); pH Urine 8.5 (4.5-7.5)
[2018-06-11] MEDS ORDERED: SOD PHOSPHATE/SOD BIPHOSPHATE ENEMA 132 ML BTL PR PRN (20:01)
[2018-06-11] MEDS ORDERED: ACETAMINOPHEN 325 MG TAB PO PRN ×2 (20:01)
[2018-06-11] MEDS ORDERED: MAGNESIUM HYDROXIDE SUSP 30 ML UDC PO PRN (20:01)
[2018-06-11] MEDS ORDERED: BISACODYL 10 MG SUPP PR PRN (20:01)
[2018-06-11] MEDS ORDERED: NALOXONE HCL 0.4 MG/1 ML VIAL/CARP IV PRN (20:01)
[2018-06-11] MEDS: HYDROmorphone INJ 0.5 MG/0.5 ML SYR IV PRN ×2 (20:25→20:56)
[2018-06-11] MEDS ORDERED: diazePAM 5 MG TABLET PO ONE (20:30)
[2018-06-11] MEDS: SODIUM CHLORIDE 0.9% 1000ML 1,000 ML IV SCH (20:32)
[2018-06-11 21:58] LABS: Blood Urea Nitrogen 12 mg/dl (7-18); Carbon Dioxide 26 mmol/L (21-32); Chloride 92 mmol/L (98-107); Est GFR (African American) 67.1; Potassium 4.7 mmol/L (3.5-5.1); Sodium 125 mmol/L (136-145)
[2018-06-11 21:59] LABS: BUN Creatinine Ratio 12.8 (10-20); Est GFR (Non-African American) 57.9; Glucose 111 mg/dl (70-99)
[2018-06-11] MEDS: DIVALPROEX DELAY RELEASE 250 MG TABEC PO SCH (22:25)
[2018-06-11] MEDS: DOCUSATE SODIUM/SENNA 50/8.6MG TAB PO SCH (22:27)
--- NOTE | 2018-06-11 23:43 | Emergency Department Note ---
Entered by Bentley Marcial acting as a scribe for Hazel Kee MD History of Present Illness General Chief complaint: Hip Pain Source: other (nurse) Limitations: altered mental status (dementia) History of Present Illness Onset (ago): hour(s) (1315 today) Location: hip (right) Pain Consistency: + constant The patient is a 77 year old female who presents to the emergency department with complaints of constant right hip pain following a fall occurring at 1315 today. Per nurse, the patient is a resident at [facility]. She states that the patient fell today at 1315. She notes that staff performed a portable X-ray on the patient which showed a fracture. She reports that the patient has a history of dementia and schizophrenia. She states that the patient is not on any blood thinners. HPI limited secondary to dementia. Home Medications Home Medications Medication Instructions Recorded Confirmed Type acetaminophen 650 mg PO TID PRN 06/11/18 06/11/18 History aspirin [Aspirin Low Dose] 81 mg PO DAILY 06/11/18 06/11/18 History atenolol 25 mg PO DAILY 06/11/18 06/11/18 History cholecalciferol (vitamin D3) 2,000 unit PO DAILY 06/11/18 06/11/18 History [Vitamin D3] cholestyramine (with sugar) 4 g PO DAILY 06/11/18 06/11/18 History [Questran] dextromethorphan-quinidine 1 cap PO Q12H 06/11/18 06/11/18 History [Nuedexta] divalproex [Depakote] 125 mg PO DAILY 06/11/18 06/11/18 History divalproex [Depakote] 250 mg PO BID 06/11/18 06/11/18 History lactobacillus combination no.4 1 tab PO DAILY 06/11/18 06/11/18 History [Probiotic] levothyroxine 100 mcg PO DAILY 06/11/18 06/11/18 History lisinopril 5 mg PO DAILY 06/11/18 06/11/18 History meloxicam [Mobic] 15 mg PO DAILY 06/11/18 06/11/18 History sertraline [Zoloft] 50 mg PO DAILY 06/11/18 06/11/18 History Allergies Allergy/AdvReac Type Severity Reaction Status Date / Time codeine Allergy Unknown UNKNOWN Verified 06/11/18 17:20 hydrocodone Allergy Unknown UNKNOWN Verified 06/11/18 17:20 Past Med/Surg History Medical History Dementia Hx: UTI (urinary tract infection) Altered mental status (Acute) Schizophrenia Family History Other No significant family history Social History marital status: / Current Living Situation: [facility] Feels Safe at Home: Yes Smoking Status: Unknown if ever smoked Beliefs That Will Affect Care: None Communication Ability: Impaired Review of Systems ROS limited secondary to demenia. Physical Exam Vital Signs Vital Signs - 24 hr 06/13/18 09:58 06/13/18 10:15 06/13/18 10:30 Temperature 37.2 C 37.7 C H 37.1 C Temperature Source Oral Oral Oral Pulse Rate 97 H 104 H 99 H Pulse Rate [Right Finger] Pulse Rhythm Regular Pulse Strength Normal Respiratory Rate 16 18 18 Blood Pressure 118/66 124/60 126/67 Blood Pressure [Left Arm] Blood Pressure Mean 83 81 86 Blood Pressure Mean [Left Arm] Blood Pressure Position Lying Lying Lying Blood Pressure Position [Left Arm] Pulse Oximetry 97 99 100 Oxygen Delivery Method 06/13/18 10:59 06/13/18 11:00 06/13/18 12:56 Temperature 37.7 C H 37.2 C 37.2 C Temperature Source Oral Oral Oral Pulse Rate 97 H 106 H 105 H Pulse Rate [Right Finger] Pulse Rhythm Regular Pulse Strength Normal Respiratory Rate 18 18 18 Blood Pressure 107/51 L 131/74 136/75 Blood Pressure [Left Arm] Blood Pressure Mean 69 93 95 Blood Pressure Mean [Left Arm] Blood Pressure Position Lying Lying Lying Blood Pressure Position [Left Arm] Pulse Oximetry 96 99 100 Oxygen Delivery Method 06/13/18 13:31 06/13/18 13:57 06/13/18 14:34 Temperature 36.3 C L 37.2 C Temperature Source Oral Oral Pulse Rate 102 H 104 H 116 H Pulse Rate [Right Finger] Pulse Rhythm Pulse Strength Respiratory Rate 18 19 21 Blood Pressure 130/68 122/69 141/74 H Blood Pressure [Left Arm] Blood Pressure Mean 88 86 96 Blood Pressure Mean [Left Arm] Blood Pressure Position Lying Lying Lying Blood Pressure Position [Left Arm] Pulse Oximetry 98 95 95 Oxygen Delivery Method 02/18/19 16:06 06/13/18 18:36 06/13/18 20:39 Temperature 38.4 C H 37.9 C H 37.5 C Temperature Source Axillary Oral Axillary Pulse Rate 114 H Pulse Rate [Right Finger] Pulse Rhythm Pulse Strength Respiratory Rate 20 Blood Pressure 143/63 H Blood Pressure [Left Arm] Blood Pressure Mean 89 Blood Pressure Mean [Left Arm] Blood Pressure Position Blood Pressure Position [Left Arm] Pulse Oximetry 98 Oxygen Delivery Method 06/13/18 20:49 06/14/18 04:48 06/14/18 07:11 Temperature 36.7 C 37.3 C Temperature Source Oral Oral Pulse Rate Pulse Rate [Right Finger] 88 86 83 Pulse Rhythm Pulse Strength Respiratory Rate 16 17 18 Blood Pressure Blood Pressure [Left Arm] 122/72 137/78 120/75 Blood Pressure Mean Blood Pressure Mean [Left Arm] 88 97 90 Blood Pressure Position Blood Pressure Position [Left Arm] Lying Lying Lying Pulse Oximetry 94 97 95 Oxygen Delivery Method Room Air Room Air Room Air Vital signs reviewed. General: Elderly appearing 77 year old female, in no significant distress, obese. HEENT: No scleral icterus, PERRLA, neck supple. Atraumatic. Cardiovascular: Regular rate and rhythm, no extra sounds. Pulmonary: Clear to auscultation bilaterally, normal work of breathing. Abdomen: Soft, nontender, nondistended, positive bowel sounds. Musculoskeletal: No peripheral edema. External rotation and flexed position of right hip, pain with any ROM, nearly vascularly intact distally. Neurologic: Patient awake, alert, confused, follows commands, mumbles. Skin: Warm, dry, no rash Course 162: Past medical records reviewed. The patient was evaluated in room C9, and a complete history and physical examination were performed. 1820: I spoke to the patient's family. 182: I discussed the patient's [facility] 1839: Upon reevaluation, the patient is stable. I discussed the results and treatment plan with the patient. She verbalizes understanding and agreement. I discussed the patient's case with Dr. Andrews - Hospitalist, [facility]. The patient will be evaluated for further management and care. Consultations Consultation #1: I discussed the patient's case [facility]. Time: 18:22 Consultation #2: I reviewed the patient's case with Dr. Andrews - Hospitalist, [facility]. He will evaluate the patient for further management. Time: 18:39 Administered Medications Acetaminophen (Tylenol) 1,000 mg PO Q8 SAB[facility]INA Stop: 07/12/18 21:59 Last Admin: 06/14/18 05:52 Dose: 1,000 mg Admin: 06/13/18 22:00 Dose: 1,000 mg Admin: 06/13/18 13:30 Dose: Not Given Admin: 06/13/18 05:32 Dose: 1,000 mg Admin: 06/12/18 21:15 Dose: 1,000 mg Atenolol (Tenormin) 25 mg PO DAILY S[facility]RINA Stop: 07/12/18 08:59 Last Admin: 06/13/18 07:45 Dose: 25 mg Admin: 06/12/18 08:04 Dose: Not Given Cholestyramine Resin (Questran) 4 gm PO DAILY@1000 SABRINA Stop: 07/12/18 09:59 Last Admin: 06/13/18 09:56 Dose: 4 gm Admin: 06/12/18 10:18 Dose: Not Given Divalproex Sodium (Depakote Delay Release) 250 mg PO BID SABRINA Stop: 07/11/18 20:59 Last Admin: 06/13/18 20:18 Dose: 250 mg Admin: 06/13/18 07:44 Dose: 250 mg Admin: 06/12/18 21:14 Dose: 250 mg Admin: 06/12/18 08:05 Dose: 250 mg Admin: 06/11/18 22:25 Dose: 250 mg Divalproex Sodium (Depakote Delay Release) 125 mg PO DAILY SABRINA Stop: 07/12/18 08:59 Last Admin: 06/13/18 07:45 Dose: 125 mg Admin: 06/12/18 08:05 Dose: 125 mg Hydromorphone HCl (Dilaudid) 0.25 - 0.5 mg IV Q20M PRN PRN Reason: Pain Stop: 06/25/18 20:00 Last Admin: 06/13/18 17:32 Dose: 0.5 mg Admin: 06/12/18 21:05 Dose: 0.5 mg Admin: 06/12/18 18:33 Dose: 0.5 mg Admin: 06/12/18 09:51 Dose: 0.5 mg Admin: 06/12/18 08:09 Dose: 0.5 mg Admin: 06/11/18 20:56 Dose: 0.5 mg Admin: 06/11/18 20:25 Dose: 0.5 mg Lorazepam (Ativan) 1 mg in 2 mls @ 0.5 mls/min IV Q6H PRN PRN Reason: Agitation Stop: 07/11/18 20:00 Last Admin: 06/13/18 12:16 Dose: 0.5 mls/min Admin: 06/13/18 04:55 Dose: 0.5 mls/min Admin: 06/12/18 21:03 Dose: 0.5 mls/min Ceftriaxone Sodium 1,000 mg/ (Dextrose) 60 mls @ 100 mls/hr IV DAILY@1400 SABRINA; Protocol Stop: 06/18/18 13:59 Last Infusion: 06/13/18 18:09 Dose: 0 mls/hr Admin: 06/13/18 16:54 Dose: 100 mls/hr Sodium Chloride (Nss 1000ml) 1,000 mls @ 80 mls/hr IV .[id number] [facility] Stop: 07/13/18 13:29 Last Infusion: 06/14/18 06:05 Dose: 80 mls/hr Admin: 06/14/18 04:36 Dose: 80 mls/hr Infusion: 06/14/18 04:36 Dose: 80 mls/hr Admin: 06/13/18 16:14 Dose: 80 mls/hr Ibuprofen (Motrin) 600 mg PO Q6H PRN PRN Reason: Fever Stop: 07/13/18 16:41 Last Admin: 06/13/18 17:05 Dose: 600 mg Lactobacillus Acidophilus (Floranex) 1 tab PO DAILY S[facility]INA Stop: 07/13/18 08:59 Last Admin: 06/13/18 07:45 Dose: 1 tab [facility]: 07/12/18 06:29 Last Admin: 06/14/18 05:52 Dose: 100 mcg Admin: 06/13/18 05:32 Dose: 100 mcg Admin: 06/12/18 05:58 Dose: 100 mcg Lisinopril (Zestril) 5 mg PO DAILY S[facility]INA Stop: 07/13/18 08:59 Last Admin: 06/13/18 07:44 Dose: 5 mg Miscellaneous (Order Awaiting Action) 1 ea N/A QS [facility] Stop: 07/12/18 00:00 Last Admin: 06/14/18 00:52 Dose: Not Given Admin: 06/13/18 16:41 Dose: Not Given Admin: 06/13/18 07:44 Dose: Not Given Admin: 06/13/18 00:21 Dose: Not Given Admin: 06/12/18 16:34 Dose: Not Given Admin: 06/12/18 07:59 Dose: Not Given Admin: 06/11/18 23:07 Dose: Not Given Senna/Docusate Sodium (Senokot S) 2 tab PO HS [facility] Stop: 07/11/18 20:59 Last Admin: 06/13/18 20:18 Dose: 2 tab Admin: 06/12/18 21:14 Dose: 2 tab Admin: 06/11/18 22:27 Dose: Not Given Sertraline HCl (Zoloft) 50 mg PO DAILY S[facility]INA Stop: 07/12/18 08:59 Last Admin: 06/13/18 07:45 Dose: 50 mg Admin: 06/12/18 08:05 Dose: 50 mg Tramadol HCl (Ultram) 50 mg PO Q4H PRN PRN Reason: Pain Stop: 07/12/18 16:16 Last Admin: 06/13/18 20:20 Dose: 50 mg Admin: 06/13/18 14:17 Dose: 50 mg Admin: 06/13/18 02:14 Dose: 50 mg Admin: 06/12/18 16:36 Dose: 50 mg Vitamin D (Vitamin D3) 2,000 units PO DAILY S[facility]INA Stop: 07/13/18 08:59 Last Admin: 06/13/18 07:44 Dose: 2,000 units Discontinued Medications Bupivacaine HCl/Epinephrine Bitart (Sensorcaine/Epinephrine 0.5% Mpf 1:200,000) Confirm Administered Dose 30 ml .ROUTE .STK-MED ONE Stop: 06/12/18 14:20 Last Admin: 06/12/18 15:07 Dose: 30 ml Diazepam (Valium) 5 mg PO HS ONE Stop: 06/11/18 20:31 Last Admin: 06/11/18 20:46 Dose: 5 mg Fentanyl Citrate (Fentanyl Citrate) 50 mcg IV Q30M PRN PRN Reason: Pain Stop: 06/25/18 16:30 Last Admin: 06/11/18 19:09 Dose: 50 mcg Admin: 06/11/18 16:46 Dose: 50 mcg Sodium Chloride (Nss 1000ml) 1,000 mls @ 150 mls/hr IV .Q6H40M [facility] Stop: 06/11/18 23:09 Last Infusion: 06/11/18 22:45 Dose: 0 mls/hr Admin: 06/11/18 16:46 Dose: 150 mls/hr Sodium Chloride (Nss 1000ml) 1,000 mls @ 150 mls/hr IV .Q6H40M [facility] Stop: 06/12/18 09:49 Last Infusion: 06/12/18 09:47 Dose: Admin: 06/12/18 03:01 Dose: 150 mls/hr Infusion: 06/12/18 03:01 Dose: 150 mls/hr Admin: 06/11/18 20:32 Dose: 150 mls/hr Cefazolin Sodium (Ancef 2000mg) 2,000 mg in 15 mls @ 3.75 mls/min IV PREOP [facility] ; Protocol Stop: 06/13/18 05:59 Last Admin: 06/12/18 14:16 Dose: 3.75 mls/min Cefazolin Sodium (Ancef 2000mg) 2,000 mg in 15 mls @ 3.75 mls/min IV Q8H S[facility] Stop: 06/13/18 06:03 Last Admin: 06/13/18 05:25 Dose: 3.75 mls/min Admin: 06/12/18 21:18 Dose: 3.75 mls/min Acetaminophen (Ofirmev) 65 mls @ 200 mls/hr IV NOW ONE Stop: 06/13/18 09:06 Last Infusion: 06/13/18 09:25 Dose: 0 mls/hr Admin: 06/13/18 09:09 Dose: 200 mls/hr Miscellaneous (Patient's Height And/Or Weight Needed) 1 ea N/A Q15M [facility] Stop: 06/12/18 21:00 Last Admin: 06/12/18 22:15 Dose: Not Given Admin: 06/12/18 22:14 Dose: Not Given Admin: 06/12/18 22:14 Dose: Not Given Admin: 06/12/18 22:14 Dose: Not Given Admin: 06/12/18 20:16 Dose: 1 ea Admin: 06/12/18 20:15 Dose: 1 ea Admin: 06/12/18 20:15 Dose: Not Given Admin: 06/12/18 19:28 Dose: 1 ea Admin: 06/12/18 19:26 Dose: 1 ea Medical Decision Making Differential Diagnosis Differential diagnosis: Etiologies such as fracture, dislocation, neurovascular compromise, compartment syndrome, soft tissue injury, as well as others were entertained. Medical Records Attestation: I reviewed the patient's medical records. Home Medications Current Medication List: was personally reviewed by me Laboratory Data Attestation: I reviewed the patient's lab results. Result diagrams: 06/14/18 06:54 06/13/18 06:43 Lab Results 06/11/18 06/11/18 06/11/18 Range/Units 16:27 16:27 16:27 WBC 5.47 (4.8-10.8) K/uL RBC 3.61 L (4.2-5.4) M/uL Hgb 10.9 L (12.0-16.0) g/dL Hct 32.0 L (37-47) % MCV 88.6 (80-100) fL MCH 30.2 (25-34) pg MCHC 34.1 (32-36) g/dL RDW Std Deviation 44.5 (36.4-46.3) fL RDW Coeff of Cheko 13.7 (11.5-14.5) % Plt Count 320 (130-400) K/uL MPV 8.8 (7.4-10.4) fL Immature Gran % (Auto) 0.2 % Neut % (Auto) 67.8 % Lymph % (Auto) 20.3 % [place] % (Auto) 10.6 % Eos % (Auto) 0.7 % Baso % (Auto) 0.4 % Immature Gran # (Auto) 0.01 (0.00-0.02) K/uL Neut # (Auto) 3.71 (1.4-6.5) K/uL Lymph # (Auto) 1.11 L (1.2-3.4) K/uL [place] # (Auto) 0.58 (0.11-0.59) K/uL Eos # (Auto) 0.04 (0-0.5) K/uL Baso # (Auto) 0.02 (0-0.2) K/uL Acanthocytes (Spur) PT 11.0 (9.0-12.0) Seconds INR 1.1 (0.9-1.1) APTT 28.5 (21.0-31.0) Seconds PTT Ratio 1.1 Sodium 122 L (136-145) mmol/L Potassium 4.7 (3.5-5.1) mmol/L Chloride 88 L (98-107) mmol/L Carbon Dioxide 28 (21-32) mmol/L Anion Gap 6.0 (3-11) BUN 12 (7-18) mg/dl Creatinine 0.92 (0.6-1.2) mg/dl Est Cr Clr Drug Dosing Not Reportable Est GFR ( Amer) 70.6 Est GFR (Non-Af Amer) 60.9 BUN/Creatinine Ratio 13.1 (10-20) Glucose 103 H (70-99) mg/dl POC Glucose (70-99) Calcium 8.3 L (8.5-10.1) mg/dl Total Bilirubin (0.2-1) mg/dl AST (15-37) U/L ALT (12-78) U/L Alkaline Phosphatase (45-117) U/L Total Protein (6.4-8.2) gm/dl Albumin (3.4-5.0) gm/dl Globulin (2.5-4.0) gm/dl Albumin/Globulin Ratio (0.9-2) 25-OH Vitamin D Total (30-100) ng/ml Urine Color Urine Appearance (Clear) Urine pH (4.5-7.5) Ur Specific Pringle (1.000-1.030) Urine Protein (Negative) Urine Glucose (UA) (Negative) Urine Ketones (Negative) Urine Blood (Negative) Urine Nitrite (Negative) Urine Bilirubin (Negative) Urine Urobilinogen (Negative) Ur Leukocyte Esterase (Negative) Urine WBC (Auto) (0-5) /hpf Urine RBC (Auto) (0-4) /hpf U Hyaline Cast (Auto) (0-5) /lpf U Epithel Cells (Auto) (0-5) /lpf Urine Bacteria (Auto) (Negative) Nasal Screen MRSA (PCR) (Negative) Blood Type Blood Type Recheck Antibody Screen Crossmatch 06/11/18 06/11/18 06/11/18 Range/Units 16:27 16:50 19:10 WBC (4.8-10.8) K/uL RBC (4.2-5.4) M/uL Hgb (12.0-16.0) g/dL Hct (37-47) % MCV (80-100) fL MCH (25-34) pg MCHC (32-36) g/dL RDW Std Deviation (36.4-46.3) fL RDW Coeff of Cheko (11.5-14.5) % Plt Count (130-400) K/uL MPV (7.4-10.4) fL Immature Gran % (Auto) % Neut % (Auto) % Lymph % (Auto) % [place] % (Auto) % Eos % (Auto) % Baso % (Auto) % Immature Gran # (Auto) (0.00-0.02) K/uL Neut # (Auto) (1.4-6.5) K/uL Lymph # (Auto) (1.2-3.4) K/uL [place] # (Auto) (0.11-0.59) K/uL Eos # (Auto) (0-0.5) K/uL Baso # (Auto) (0-0.2) K/uL Acanthocytes (Spur) PT (9.0-12.0) Seconds INR (0.9-1.1) APTT (21.0-31.0) Seconds PTT Ratio Sodium (136-145) mmol/L Potassium (3.5-5.1) mmol/L Chloride (98-107) mmol/L Carbon Dioxide (21-32) mmol/L Anion Gap (3-11) BUN (7-18) mg/dl Creatinine (0.6-1.2) mg/dl Est Cr Clr Drug Dosing Est GFR ( Amer) Est GFR (Non-Af Amer) BUN/Creatinine Ratio (10-20) Glucose (70-99) mg/dl POC Glucose 110 H (70-99) Calcium (8.5-10.1) mg/dl Total Bilirubin (0.2-1) mg/dl AST (15-37) U/L ALT (12-78) U/L Alkaline Phosphatase (45-117) U/L Total Protein (6.4-8.2) gm/dl Albumin (3.4-5.0) gm/dl Globulin (2.5-4.0) gm/dl Albumin/Globulin Ratio (0.9-2) 25-OH Vitamin D Total (30-100) ng/ml Urine Color Yellow Urine Appearance Cloudy H (Clear) Urine pH 8.5 H (4.5-7.5) Ur Specific Pringle 1.012 (1.000-1.030) Urine Protein Negative (Negative) Urine Glucose (UA) Negative (Negative) Urine Ketones Trace H (Negative) Urine Blood Negative (Negative) Urine Nitrite Positive H (Negative) Urine Bilirubin Negative (Negative) Urine Urobilinogen Negative (Negative) Ur Leukocyte Esterase 3+ H (Negative) Urine WBC (Auto) >30 H (0-5) /hpf Urine RBC (Auto) 0-4 (0-4) /hpf U Hyaline Cast (Auto) 1-5 (0-5) /lpf U Epithel Cells (Auto) 5-10 H (0-5) /lpf Urine Bacteria (Auto) 4+ H (Negative) Nasal Screen MRSA (PCR) (Negative) Blood Type O Positive Blood Type Recheck Antibody Screen NEGATIVE Crossmatch See Detail 06/11/18 06/11/18 06/12/18 Range/Units 20:00 21:30 00:55 WBC (4.8-10.8) K/uL RBC (4.2-5.4) M/uL Hgb (12.0-16.0) g/dL Hct (37-47) % MCV (80-100) fL MCH (25-34) pg MCHC (32-36) g/dL RDW Std Deviation (36.4-46.3) fL RDW Coeff of Cheko (11.5-14.5) % Plt Count (130-400) K/uL MPV (7.4-10.4) fL Immature Gran % (Auto) % Neut % (Auto) % Lymph % (Auto) % [place] % (Auto) % Eos % (Auto) % Baso % (Auto) % Immature Gran # (Auto) (0.00-0.02) K/uL Neut # (Auto) (1.4-6.5) K/uL Lymph # (Auto) (1.2-3.4) K/uL [place] # (Auto) (0.11-0.59) K/uL Eos # (Auto) (0-0.5) K/uL Baso # (Auto) (0-0.2) K/uL Acanthocytes (Spur) PT (9.0-12.0) Seconds INR (0.9-1.1) APTT (21.0-31.0) Seconds PTT Ratio Sodium 125 L 126 L (136-145) mmol/L Potassium 4.7 5.5 H D (3.5-5.1) mmol/L Chloride 92 L 95 L (98-107) mmol/L Carbon Dioxide 26 26 (21-32) mmol/L Anion Gap 7.0 5.0 (3-11) BUN 12 13 (7-18) mg/dl Creatinine 0.96 1.32 H D (0.6-1.2) mg/dl Est Cr Clr Drug Dosing Not Reportable Not Reportable Est GFR ( Amer) 67.1 45.6 Est GFR (Non-Af Amer) 57.9 39.4 BUN/Creatinine Ratio 12.8 10.1 (10-20) Glucose 111 H 107 H (70-99) mg/dl POC Glucose (70-99) Calcium 8.0 L 7.5 L (8.5-10.1) mg/dl Total Bilirubin (0.2-1) mg/dl AST (15-37) U/L ALT (12-78) U/L Alkaline Phosphatase (45-117) U/L Total Protein (6.4-8.2) gm/dl Albumin (3.4-5.0) gm/dl Globulin (2.5-4.0) gm/dl Albumin/Globulin Ratio (0.9-2) 25-OH Vitamin D Total (30-100) ng/ml Urine Color Urine Appearance (Clear) Urine pH (4.5-7.5) Ur Specific P[place]le (1.000-1.030) Urine Protein (Negative) Urine Glucose (UA) (Negative) Urine Ketones (Negative) Urine Blood (Negative) Urine Nitrite (Negative) Urine Bilirubin (Negative) Urine Urobilinogen (Negative) Ur Leukocyte Esterase (Negative) Urine WBC (Auto) (0-5) /hpf Urine RBC (Auto) (0-4) /hpf U Hyaline Cast (Auto) (0-5) /lpf U Epithel Cells (Auto) (0-5) /lpf Urine Bacteria (Auto) (Negative) Nasal Screen MRSA (PCR) Negative (Negative) Blood Type Blood Type Recheck Antibody Screen Crossmatch 06/12/18 06/13/18 06/13/18 Range/Units 16:45 06:43 06:43 WBC 11.74 H (4.8-10.8) K/uL RBC 2.25 L (4.2-5.4) M/uL Hgb 6.7 L* D (12.0-16.0) g/dL Hct 19.9 L* (37-47) % MCV 88.4 (80-100) fL MCH 29.8 (25-34) pg MCHC 33.7 (32-36) g/dL RDW Std Deviation 46.1 (36.4-46.3) fL RDW Coeff of Cheko 14.2 (11.5-14.5) % Plt Count 216 (130-400) K/uL MPV 8.6 (7.4-10.4) fL Immature Gran % (Auto) 0.3 % Neut % (Auto) 77.0 % Lymph % (Auto) 7.4 % [place] % (Auto) 15.2 % Eos % (Auto) 0.0 % Baso % (Auto) 0.1 % Immature Gran # (Auto) 0.04 H (0.00-0.02) K/uL Neut # (Auto) 9.03 H (1.4-6.5) K/uL Lymph # (Auto) 0.87 L (1.2-3.4) K/uL [place] # (Auto) 1.79 H (0.11-0.59) K/uL Eos # (Auto) 0.00 (0-0.5) K/uL Baso # (Auto) 0.01 (0-0.2) K/uL Acanthocytes (Spur) 1+ PT (9.0-12.0) Seconds INR (0.9-1.1) APTT (21.0-31.0) Seconds PTT Ratio Sodium 129 L (136-145) mmol/L Potassium 4.7 (3.5-5.1) mmol/L Chloride 96 L (98-107) mmol/L Carbon Dioxide 26 (21-32) mmol/L Anion Gap 7.0 (3-11) BUN 18 (7-18) mg/dl Creatinine 1.20 (0.6-1.2) mg/dl Est Cr Clr Drug Dosing Not Reportable Est GFR ( Amer) 51.2 Est GFR (Non-Af Amer) 44.2 BUN/Creatinine Ratio 14.7 (10-20) Glucose 107 H (70-99) mg/dl POC Glucose (70-99) Calcium 8.2 L (8.5-10.1) mg/dl Total Bilirubin 0.3 (0.2-1) mg/dl AST 25 (15-37) U/L ALT 16 (12-78) U/L Alkaline Phosphatase 47 (45-117) U/L Total Protein 6.1 L (6.4-8.2) gm/dl Albumin 2.7 L (3.4-5.0) gm/dl Globulin 3.4 (2.5-4.0) gm/dl Albumin/Globulin Ratio 0.8 L (0.9-2) 25-OH Vitamin D Total 32.8 (30-100) ng/ml Urine Color Urine Appearance (Clear) Urine pH (4.5-7.5) Ur Specific [place] (1.000-1.030) Urine Protein (Negative) Urine Glucose (UA) (Negative) Urine Ketones (Negative) Urine Blood (Negative) Urine Nitrite (Negative) Urine Bilirubin (Negative) Urine Urobilinogen (Negative) Ur Leukocyte Esterase (Negative) Urine WBC (Auto) (0-5) /hpf Urine RBC (Auto) (0-4) /hpf U Hyaline Cast (Auto) (0-5) /lpf U Epithel Cells (Auto) (0-5) /lpf Urine Bacteria (Auto) (Negative) Nasal Screen MRSA (PCR) (Negative) Blood Type Blood Type Recheck Antibody Screen Crossmatch 06/13/18 06/14/18 Range/Units 06:43 06:54 WBC 9.57 (4.8-10.8) K/uL RBC 2.80 L (4.2-5.4) M/uL Hgb 8.3 L (12.0-16.0) g/dL Hct 24.5 L (37-47) % MCV 87.5 (80-100) fL MCH 29.6 (25-34) pg MCHC 33.9 (32-36) g/dL RDW Std Deviation 47.2 H (36.4-46.3) fL RDW Coeff of Cheko 14.5 (11.5-14.5) % Plt Count 190 (130-400) K/uL MPV 8.9 (7.4-10.4) fL Immature Gran % (Auto) 0.3 % Neut % (Auto) 66.9 % Lymph % (Auto) 13.2 % [place] % (Auto) 16.2 % Eos % (Auto) 3.0 % Baso % (Auto) 0.4 % Immature Gran # (Auto) 0.03 H (0.00-0.02) K/uL Neut # (Auto) 6.40 (1.4-6.5) K/uL Lymph # (Auto) 1.26 (1.2-3.4) K/uL [place] # (Auto) 1.55 H (0.11-0.59) K/uL Eos # (Auto) 0.29 (0-0.5) K/uL Baso # (Auto) 0.04 (0-0.2) K/uL Acanthocytes (Spur) PT (9.0-12.0) Seconds INR (0.9-1.1) APTT (21.0-31.0) Seconds PTT Ratio Sodium (136-145) mmol/L Potassium (3.5-5.1) mmol/L Chloride (98-107) mmol/L Carbon Dioxide (21-32) mmol/L Anion Gap (3-11) BUN (7-18) mg/dl Creatinine (0.6-1.2) mg/dl Est Cr Clr Drug Dosing Est GFR ( Amer) Est GFR (Non-Af Amer) BUN/Creatinine Ratio (10-20) Glucose (70-99) mg/dl POC Glucose (70-99) Calcium (8.5-10.1) mg/dl Total Bilirubin (0.2-1) mg/dl AST (15-37) U/L ALT (12-78) U/L Alkaline Phosphatase (45-117) U/L Total Protein (6.4-8.2) gm/dl Albumin (3.4-5.0) gm/dl Globulin (2.5-4.0) gm/dl Albumin/Globulin Ratio (0.9-2) 25-OH Vitamin D Total (30-100) ng/ml Urine Color Urine Appearance (Clear) Urine pH (4.5-7.5) Ur Specific Pring[place] (1.000-1.030) Urine Protein (Negative) Urine Glucose (UA) (Negative) Urine Ketones (Negative) Urine Blood (Negative) Urine Nitrite (Negative) Urine Bilirubin (Negative) Urine Urobilinogen (Negative) Ur Leukocyte Esterase (Negative) Urine WBC (Auto) (0-5) /hpf Urine RBC (Auto) (0-4) /hpf U Hyaline Cast (Auto) (0-5) /lpf U Epithel Cells (Auto) (0-5) /lpf Urine Bacteria (Auto) (Negative) Nasal Screen MRSA (PCR) (Negative) Blood Type Blood Type Recheck O Positive Antibody Screen Crossmatch Imaging Data Radiologist's Impression: Radiology results as stated below per my review and the radiologist's interpretation: XR hip RT min 2V FINDINGS: Comminuted intertrochanteric fracture within the proximal right femur. This demonstrates mild superior displacement. No dislocation. The visualized pelvic bones are intact. IMPRESSION: Right femoral intertrochanteric fracture. Electronically signed by: Jameel Aguirre M.D. 06/11/2018 5:56 PM ECG Data Attestation: I personally reviewed and interpreted this ECG as follows: Indication: altered mental status Rate (beats per minute): 69 Rhythm: normal sinus Findings: no PAC, no PVC, no ST depression and no ST elevation Additional Comments: Poor quality baseline. Blood Pressure Blood Pressure Findings: Normal blood pressure Blood Pressure Disposition: did not require urgent referral MDM Narrative This patient was evaluated and appeared to be in some discomfort. Patient does have significant cognitive difficulty and mumbles. She has nearly incomprehensible speech. X-rays confirm an intertrochanteric fracture. Patient was medicated with IV fentanyl and Zofran. EKG and chest x-ray were performed. Laboratory work is fairly unrevealing, urinalysis is pending. Patient's case was discussed with the hospitalist service will evaluate the patient for further management. [facility] Impression & Plan Hyponatremia, Intertrochanteric fracture of right hip Discharge Plan Visit Data *Final* Discharge Date/Time: 06/11/18 19:23 Chief Complaint: Hip Pain Other Complaint: Fall ED Provider: Hazel Kee Discharge Problem: Hyponatremia, Intertrochanteric fracture of right hip Patient Disposition: Admitted As Inpatient Discharge Instructions Interventions: ED Discharge Assessment Last Done: 06/11/18 19:23 The scribe's documentation has been prepared under my direction and personally reviewed by me in its entirety. I confirm that the note above accurately reflects all work, treatment, procedures, and medical decision making performed by me.
[2018-06-12 01:22] LABS: BUN Creatinine Ratio 10.1 (10-20); Blood Urea Nitrogen 13 mg/dl (7-18); Calcium 7.5 mg/dl (8.5-10.1); Carbon Dioxide 26 mmol/L (21-32); Chloride 95 mmol/L (98-107); Est GFR (African American) 45.6; Est GFR (Non-African American) 39.4; Glucose 107 mg/dl (70-99); Potassium 5.5 mmol/L (3.5-5.1); Sodium 126 mmol/L (136-145)
[2018-06-12] MEDS: SODIUM CHLORIDE 0.9% 1000ML 1,000 ML IV SCH (03:01)
[2018-06-12] MEDS: LEVOTHYROXINE SODIUM 100 MCG TABLET PO SCH (05:58)
[2018-06-12] MEDS ORDERED: CEFAZOLIN 2000MG 2,000 MG/15 ML SYR IV SCH ×2 (06:00→14:45)
[2018-06-12] MEDS: ATENOLOL 25 MG TABLET PO SCH (08:04)
[2018-06-12] MEDS: SERTRALINE HCL 50 MG TABLET PO SCH (08:05)
[2018-06-12] MEDS: DIVALPROEX DELAY RELEASE 125 MG TABEC PO SCH (08:05)
[2018-06-12] MEDS: DIVALPROEX DELAY RELEASE 250 MG TABEC PO SCH ×2 (08:05→21:14)
[2018-06-12] MEDS: HYDROmorphone INJ 0.5 MG/0.5 ML SYR IV PRN ×4 (08:09→21:05)
[2018-06-12] MEDS: CHOLESTYRAMINE LIGHT 4 GM PKT PO SCH (10:18)
--- NOTE | 2018-06-12 10:52 | Family Medicine Progress Note ---
Date of Service June 12, 2018 Assessment & Plan (1) Intertrochanteric fracture of right hip: 77 y/o F with PMH advanced dementia, psuedobulbar affect, schizophrenia, HTN, HLD, depression/anxiety, hypothyroidism presents from [facility] where she suffered a fall and found to have R intertrochanteric fracture along with hyponatremia. 1) Hip fracture -RCRI minimal -hip fracture protocol -NPO -ortho consult pending 2) Hyponatremia -Na 126, improving with NSS 150 mls/hr -Previous hospital visits throughout Summer 2017 showed high 120's-low 130s -will cont monitor 3) Pseudobulbar affect -The pt cannot communicate and exhibits disruptive behavior. This is apparently her baseline -Cont Depakote and Nuedexta and one to one obs 4) HTN -cont atenolol 25 mg, Lisinopril 5 mg daily 5) Hypothyroidism -cont levothyroxine 100 mcg daily 6) Depression/Anxiety -cont sertraline 50 mg daily FEN: NSS 150, Na 126, NPO DNR (FULL for surgery only per daughter) DVT Prophylaxis: SCDs Dispo: Sx then [facility] Supervising Physician Co-Signing Physician Notes Resident Physician Supervision Note: I independently interviewed and examined the patient and verified the carpio history and physical, reviewed labs and image studies, discussed the case with the resident Dr. Burr and agree with the findings and care plan. Subjective 77 y/o F found in bed this AM. Subjective hx difficult to obtain given pt's advanced dementia/pseudobulbar affect. Dunaway in place. Nurse notes pt did describe some episodes of R hip pain, relieved with pain meds. Review of Systems All systems reviewed & are unremarkable except as noted in HPI & below Physical Exam 2 Vital Signs (Past 24 Hours): Last Vital Signs Temp 37.4 C 06/12/18 08:00 Pulse 80 06/12/18 08:01 Resp 18 06/12/18 08:00 BP 91/49 L 06/12/18 08:01 Pulse Ox 94 06/12/18 08:00 Constitutional: WD/WN, vitals as above disoriented/ random speech which is baseline Eyes: PERRL, conjunctivae normal, anicteric sclerae ENMT: external ear and nose normal, oropharynx normal Respiratory: normal respiratory effort, lungs clear to auscultation Cardiovascular: RRR, no murmur, no edema Gastrointestinal (Abdomen): normal bowel sounds, soft, nontender, no hepatosplenomegaly Musculoskeletal: R leg short/externally rotated Psychiatric: Insight: + poor insight Results & Data Laboratory Results Laboratory Results - last 24 hr 06/11/18 06/11/18 06/11/18 16:27 16:27 16:27 WBC 5.47 RBC 3.61 L Hgb 10.9 L Hct 32.0 L MCV 88.6 MCH 30.2 MCHC 34.1 RDW Std Deviation 44.5 RDW Coeff of [place] 13.7 Plt Count 320 MPV 8.8 Immature Gran % (Auto) 0.2 Neut % (Auto) 67.8 Lymph % (Auto) 20.3 [place] % (Auto) 10.6 Eos % (Auto) 0.7 Baso % (Auto) 0.4 Immature Gran # (Auto) 0.01 Neut # (Auto) 3.71 Lymph # (Auto) 1.11 L [place] # (Auto) 0.58 Eos # (Auto) 0.04 Baso # (Auto) 0.02 PT 11.0 INR 1.1 APTT 28.5 PTT Ratio 1.1 Sodium 122 L Potassium 4.7 Chloride 88 L Carbon Dioxide 28 Anion Gap 6.0 BUN 12 Creatinine 0.92 Est Cr Clr Drug Dosing Not Reportable Est GFR ( Amer) 70.6 Est GFR (Non-Af Amer) 60.9 BUN/Creatinine Ratio 13.1 Glucose 103 H POC Glucose Calcium 8.3 L Urine Color Urine Appearance Urine pH Ur Specific [place] Urine Protein Urine Glucose (UA) Urine Ketones Urine Blood Urine Nitrite Urine Bilirubin Urine Urobilinogen Ur Leukocyte Esterase Urine WBC (Auto) Urine RBC (Auto) U Hyaline Cast (Auto) U Epithel Cells (Auto) Urine Bacteria (Auto) Nasal Screen MRSA (PCR) Blood Type Antibody Screen 06/11/18 06/11/18 06/11/18 16:27 16:50 19:10 WBC RBC Hgb Hct MCV MCH MCHC RDW Std Deviation RDW Coeff of [place] Plt Count MPV Immature Gran % (Auto) Neut % (Auto) Lymph % (Auto) [place] % (Auto) Eos % (Auto) Baso % (Auto) Immature Gran # (Auto) Neut # (Auto) Lymph # (Auto) [place] # (Auto) Eos # (Auto) Baso # (Auto) PT INR APTT PTT Ratio Sodium Potassium Chloride Carbon Dioxide Anion Gap BUN Creatinine Est Cr Clr Drug Dosing Est GFR ( Amer) Est GFR (Non-Af Amer) BUN/Creatinine Ratio Glucose POC Glucose 110 H Calcium Urine Color Yellow Urine Appearance Cloudy H Urine pH 8.5 H Ur Specific [place] 1.012 Urine Protein Negative Urine Glucose (UA) Negative Urine Ketones Trace H Urine Blood Negative Urine Nitrite Positive H Urine Bilirubin Negative Urine Urobilinogen Negative Ur Leukocyte Esterase 3+ H Urine WBC (Auto) >30 H Urine RBC (Auto) 0-4 U Hyaline Cast (Auto) 1-5 U Epithel Cells (Auto) 5-10 H Urine Bacteria (Auto) 4+ H Nasal Screen MRSA (PCR) Blood Type O Positive Antibody Screen NEGATIVE 06/11/18 06/11/18 06/12/18 20:00 21:30 00:55 WBC RBC Hgb Hct MCV MCH MCHC RDW Std Deviation RDW Coeff of [place] Plt Count MPV Immature Gran % (Auto) Neut % (Auto) Lymph % (Auto) [place] % (Auto) Eos % (Auto) Baso % (Auto) Immature Gran # (Auto) Neut # (Auto) Lymph # (Auto) [place] # (Auto) Eos # (Auto) Baso # (Auto) PT INR APTT PTT Ratio Sodium 125 L 126 L Potassium 4.7 5.5 H D Chloride 92 L 95 L Carbon Dioxide 26 26 Anion Gap 7.0 5.0 BUN 12 13 Creatinine 0.96 1.32 H D Est Cr Clr Drug Dosing Not Reportable Not Reportable Est GFR ( Amer) 67.1 45.6 Est GFR (Non-Af Amer) 57.9 39.4 BUN/Creatinine Ratio 12.8 10.1 Glucose 111 H 107 H POC Glucose Calcium 8.0 L 7.5 L Urine Color Urine Appearance Urine pH Ur Specific [place] Urine Protein Urine Glucose (UA) Urine Ketones Urine Blood Urine Nitrite Urine Bilirubin Urine Urobilinogen Ur Leukocyte Esterase Urine WBC (Auto) Urine RBC (Auto) U Hyaline Cast (Auto) U Epithel Cells (Auto) Urine Bacteria (Auto) Nasal Screen MRSA (PCR) Negative Blood Type Antibody Screen Medications Administered Current Inpatient Medications Acetaminophen (Tylenol) 650 mg PO Q4H PRN PRN Reason: pain/fever Stop: 07/11/18 20:00 Atenolol (Tenormin) 25 mg PO DAILY [facility] Stop: 07/12/18 08:59 Last Admin: 06/12/18 08:04 Dose: Not Given Bisacodyl (Dulcolax) 10 mg PA DAILY PRN PRN Reason: Constipation Stop: 07/11/18 20:00 Cholestyramine Resin (Questran) 4 gm PO DAILY@1000 S[facility]INA Stop: 07/12/18 09:59 Last Admin: 06/12/18 10:18 Dose: Not Given Divalproex Sodium (Depakote Delay Release) 250 mg PO BID [facility] Stop: 07/11/18 20:59 Last Admin: 06/12/18 08:05 Dose: 250 mg Divalproex Sodium (Depakote Delay Release) 125 mg PO DAILY [facility] Stop: 07/12/18 08:59 Last Admin: 06/12/18 08:05 Dose: 125 mg Hydromorphone HCl (Dilaudid) 0.25 - 0.5 mg IV Q20M PRN PRN Reason: Pain Stop: 06/25/18 20:00 Last Admin: 06/12/18 09:51 Dose: 0.5 mg Cefazolin Sodium (Ancef 2000mg) 2,000 mg in 15 mls @ 3.75 mls/min IV PREOP SABRINA ; Protocol Stop: 06/13/18 05:59 Lorazepam (Ativan) 1 mg in 2 mls @ 0.5 mls/min IV Q6H PRN PRN Reason: Agitation Stop: 07/11/18 20:00 Levothyroxine Sodium (Synthroid) 100 mcg PO DAILYBB [facility] Stop: 07/12/18 06:29 Last Admin: 06/12/18 05:58 Dose: 100 mcg Magnesium Hydroxide (Milk Of Magnesia) 30 ml PO DAILY PRN PRN Reason: Constipation Stop: 07/11/18 20:00 Miscellaneous (Order Awaiting Action) 1 ea N/A QS [facility] Stop: 07/12/18 00:00 Last Admin: 06/12/18 07:59 Dose: Not Given Naloxone HCl (Narcan) 0.1 mg IV UD PRN PRN Reason: opiate overdose Stop: 07/11/18 20:00 Senna/Docusate Sodium (Senokot S) 2 tab PO HS [facility] Stop: 07/11/18 20:59 Last Admin: 06/11/18 22:27 Dose: Not Given Sertraline HCl (Zoloft) 50 mg PO DAILY [facility] Stop: 07/12/18 08:59 Last Admin: 06/12/18 08:05 Dose: 50 mg Sodium Biphosphate/Sodium Phosphate (Fleet Enema) 132 ml PA DAILY PRN PRN Reason: Constipation Stop: 07/11/18 20:00 Resident Activity Tracking Resident Involvement: Resident Care Provided Care Provided: [facility] Medicine _ (1) Intertrochanteric fracture of right hip Encounter type: initial encounter Fracture alignment: displaced Fracture healing: Fracture type: closed Open fracture type: Qualified Code(s): S72.141A - Displaced intertrochanteric fracture of right femur, initial encounter for closed fracture
[2018-06-12] MEDS ORDERED: ONDANSETRON INJ 2 MG/ML 2 ML VIAL ONE (11:46)
[2018-06-12] MEDS ORDERED: PROPOFOL IV EMULSION 10 MG/ML 20 ML VIAL IV ONE (11:46)
[2018-06-12] MEDS ORDERED: fentaNYL citrate 100 MCG/2 ML VIAL ONE (11:46)
[2018-06-12] MEDS ORDERED: LIDOCAINE HCL 2% 2 ML VIAL/AMP(20MG/ML) INFIL ONE (11:46)
[2018-06-12] MEDS ORDERED: DEXAMETHASONE SOD INJ 4 MG/ML VIAL ONE (11:46)
--- NOTE | 2018-06-12 12:21 | History & Physical Bridge Note ---
Date of Service June 12, 2018 History & Physical Bridge Note I have examined the patient, reviewed the History & Physical and in the interval since the performance of the History & Physical I have noted the following changes of clinical significance: no changes noted
--- NOTE | 2018-06-12 13:05 | Anesthesiology Consultation ---
Date of Service June 12, 2018 Assessment & Plan (1) Encounter for pre-operative examination: Chart Review Chart Review: Acceptable Risk for Surgery NPO Date Last Intake of Fluids: 06/12/18 Time Last Intake of Fluids: 23:00 Date Last Intake of Solids: 06/12/18 Time Last Intake of Solids: 22:45 History Surgery Operation Date: 06/12/18 11:00 Proposed Procedures p Intramedullary Kye Femur(Right) - Zackary Morrow DO Height/Weight Weight: 80 kg Allergies Allergy/AdvReac Type Severity Reaction Status Date / Time codeine Allergy Unknown UNKNOWN Verified 06/11/18 17:20 hydrocodone Allergy Unknown UNKNOWN Verified 06/11/18 17:20 Medications Home Medications Medication Instructions Recorded Confirmed Last Taken acetaminophen 650 mg PO TID PRN 06/11/18 06/11/18 06/11/18 aspirin [Aspirin Low Dose] 81 mg PO DAILY 06/11/18 06/11/18 06/11/18 atenolol 25 mg PO DAILY 06/11/18 06/11/18 06/11/18 cholecalciferol (vitamin D3) 2,000 unit PO DAILY 06/11/18 06/11/18 06/11/18 [Vitamin D3] cholestyramine (with sugar) 4 g PO DAILY 06/11/18 06/11/18 06/11/18 [Questran] dextromethorphan-quinidine 1 cap PO Q12H 06/11/18 06/11/18 06/11/18 [Nuedexta] divalproex [Depakote] 125 mg PO DAILY 06/11/18 06/11/18 06/11/18 divalproex [Depakote] 250 mg PO BID 06/11/18 06/11/18 06/11/18 lactobacillus combination no.4 1 tab PO DAILY 06/11/18 06/11/18 06/11/18 [Probiotic] levothyroxine 100 mcg PO DAILY 06/11/18 06/11/18 06/11/18 lisinopril 5 mg PO DAILY 06/11/18 06/11/18 06/11/18 meloxicam [Mobic] 15 mg PO DAILY 06/11/18 06/11/18 06/11/18 sertraline [Zoloft] 50 mg PO DAILY 06/11/18 06/11/1819 Active Medications Generic Name Dose Route Start Last Admin Trade Name Miahq PRN Reason Stop Dose Admin Atenolol 25 mg 06/12/18 09:00 06/12/18 08:04 Tenormin PO 07/12/18 08:59 Not Given DAILY SABRINA Cholestyramine Resin 4 gm 06/12/18 10:00 06/12/18 10:18 Questran PO 07/12/18 09:59 Not Given DAILY@1000 SABRINA Divalproex Sodium 250 mg 06/11/18 21:00 06/12/18 08:05 Depakote Delay Release PO 07/11/18 20:59 250 mg BID SABRINA Administration Divalproex Sodium 125 mg 06/12/18 09:00 06/12/18 08:05 Depakote Delay Release PO 07/12/18 08:59 125 mg DAILY SABRINA Administration Hydromorphone HCl 0.25 - 0.5 mg 06/11/18 20:01 06/12/18 09:51 Dilaudid IV 06/25/18 20:00 0.5 mg Q20M PRN Administration Pain Levothyroxine Sodium 100 mcg 06/12/18 06:30 06/12/18 05:58 Synthroid PO 07/12/18 06:29 100 mcg DAILYBB SABRINA Administration Miscellaneous 1 ea 06/12/18 00:00 06/12/18 07:59 Order Awaiting Action N/A 07/12/18 00:00 Not Given QS SABRINA Senna/Docusate Sodium 2 tab 06/11/18 21:00 06/11/18 22:27 Senokot S PO 07/11/18 20:59 Not Given HS SABRINA Sertraline HCl 50 mg 06/12/18 09:00 06/12/18 08:05 Zoloft PO 07/12/18 08:59 50 mg DAILY SAB[facility]INA Administration Past Medical History Medical History Dementia Hx: UTI (urinary tract infection) Altered mental status (Acute) Schizophrenia Past Family History Family History Other No significant family history Social History Smoking Status: Unknown if ever smoked Alcohol Intake Frequency Comment: unknown substance use type: unknown Physical Exam Vital Signs Last Vital Signs Temp 37.4 C 06/12/18 08:00 Pulse 80 06/12/18 08:01 Resp 18 06/12/18 08:00 BP 91/49 L 06/12/18 08:01 Pulse Ox 94 06/12/18 08:00 Testing Electrocardiogram Date: 06/11/18 Findings: + NSR @ (69) Laboratory Results 06/11/18 16:27 06/12/18 00:55 Blood Type O Positive 06/11/18 16: Antibody Screen NEGATIVE 06/11/18: PT 11.0 Seconds (9.0-12.0) 06/11/18 16: INR 1.1 (0.9-1.1) 06/11/18 16: APTT 28.5 Seconds (21.0-31.0) 06/11/18 16: Urine Color Yellow 06/11/18 19:10 Urine Appearance Cloudy (Clear) H 06/11/18 19:10 Urine pH 8.5 (4.5-7.5) H 06/11/18 19:10 Ur Specific [place] 1.012 (1.000-1.030) 06/11/18 19:10 Urine Protein Negative (Negative) 06/11/18 19:10 Urine Glucose (UA) Negative (Negative) 06/11/18 19:10 Urine Ketones Trace (Negative) H 06/11/18 19:10 Urine Nitrite Positive (Negative) H 06/11/18 19:10 Ur Leukocyte Esterase 3+ (Negative) H 06/11/18 19:10 Urine WBC (Auto) >30 /hpf (0-5) H 06/11/18 19:10 Urine RBC (Auto) 0-4 /hpf (0-4) 06/11/18 19:10 U Hyaline Cast (Auto) 1-5 /lpf (0-5) 06/11/18 19:10 U Epithel Cells (Auto) 5-10 /lpf (0-5) H 06/11/18 19:10 Urine Bacteria (Auto) 4+ (Negative) H 06/11/18 19:10 06/11/18 19:10 Urine Culture - Preliminary Urine,Straight Cath Escherichia coli
[2018-06-12] MEDS ORDERED: HYDROmorphone INJ 1 MG/ML SYRINGE IV PRN (13:08)
[2018-06-12] MEDS ORDERED: ONDANSETRON INJ 2 MG/ML 2 ML VIAL IV PRN (13:08)
[2018-06-12] MEDS ORDERED: ATROPINE SULFATE 0.1 MG/ML 10ML SYR IV PRN (13:08)
[2018-06-12] MEDS ORDERED: LABETALOL HCL IV 5 MG/ML 20ML IV PRN (13:08)
[2018-06-12] MEDS ORDERED: BUPIVACAINE/EPINEPHRINE 0.5% MPF 1:200,000 30 ML VIAL ONE (14:19)
[2018-06-12] MEDS ORDERED: ePHEDrine sulfate 50 MG/ML SYR ONE (14:22)
[2018-06-12] MEDS ORDERED: CEFAZOLIN 250 MG/ML 1 GM VIAL ONE (14:30)
[2018-06-12] MEDS ORDERED: NEOSTIGMINE METHYLSULFATE 5 MG/5 ML SYR ONE (15:04)
[2018-06-12] MEDS ORDERED: GLYCOPYRROLATE 0.2 MG/ML VIAL ONE (15:04)
[2018-06-12] MEDS ORDERED: ROCURONIUM BROMIDE 10 MG/ML 5 ML VIAL ONE (15:04)
--- NOTE | 2018-06-12 15:08 | History & Physical Bridge Note ---
Date of Service June 12, 2018 History & Physical Bridge Note I have examined the patient, reviewed the History & Physical and in the interval since the performance of the History & Physical I have noted the following changes of clinical significance: no acute physical changes noted beside the right displaced intertrochanteric hip fracture. The patient's primary POA Danii Stout was unavailable due to a hiking trip without access to communication and she designated the secondary POA Blanquita Stout, the patient's granddaughter as her designate to make decisions regarding the care of her grandmother. Blanquita Stout is listed as the secondary designate for POA per the granddaughter on the patient's will. This will was unavailable to be reviewed today. Due to the patient's medical condition optimization and potential of worsening of her general medical condition, the decision was made to proceed with surgery as indicated. The surgery was approved by the secondary POA Blanquita Stout who was present during the time of surgery. Postponing the surgical procedure was not in the patient's best interest and decision was made to proceed with surgery as indicated. Long discussion was had with Jesus Castellanos, the risk assessment officer as well as discussion with Sammy Omalley MD the anesthesiologist caring for the patient. We were all in agreement that the patient's best interest would be served if we were to proceed with surgery as indicated to repair her displaced right hip fracture.
--- NOTE | 2018-06-12 15:10 | Post Operative Brief Note ---
Immediate Post Op Note v1 Date of Surgery June 12, 2018 Pre & Post Diagnosis Operation Date: 06/12/18 11:00 Pre-Op Diagnosis: Right displaced femoral intertrochanteric hip fracture Post-Op Diagnosis: Right displaced femoral intertrochanteric hip fracture Procedure Operation Date: 06/12/18 11:00 Actual Procedures p open reduction internal fixation right displaced intertrochanteric hip fracture with [employer]ynthes trochanteric intramedullary Kye Femur size 11 mm/1 titanium trochanteric nail 235 mm in length with an 11 mm titanium helical blade 95 mm in length and a 5 mm x 38 mm locking screw (Right) - Zackary Morrow DO Surgeon Zackary Morrow DO Instructional Design Consultant Tra Howe PA-C Estimated Blood Loss 10 Findings Consistent with Post-Op Diagnosis Specimens None Anesthesia Type General Complications none Disposition Accompanied Patient To Recovery: No Disposition: Recovery Room
--- NOTE | 2018-06-12 15:14 | Fluoroscopy Report ---
FL hip RT 2-3V CLINICAL HISTORY: RIGHT HIP FRACTURE COMPARISON STUDY: 06/11/2018 FLUOROSCOPY TIME: 85 seconds. NUMBER OF FLUOROSCOPIC IMAGES: 4 FINDINGS: Intraoperative fluoroscopic spot images demonstrate internal fixation of the intertrochante mejia right hip fracture with a femoral neck nail and interlocking intramedullary paul. IMPRESSION: Internally fixated intertrochanteric right hip fracture Electronically signed by: Donovan Lima M.D. 06/12/2018 3:13 PM
--- NOTE | 2018-06-12 16:21 | Anesthesiology Progress Note ---
Date of Service June 12, 2018 Anesthesia Post Procedure Vital Signs Vital Signs: Temp Pulse Pulse Pulse Resp BP BP 06/12/18 16:19 36.4 C L 85 16 133/77 06/12/18 15:43 86 16 133/77 06/12/18 15:41 83 17 153/105 H 06/12/18 15:40 84 16 06/12/18 15:36 83 15 159/76 H 06/12/18 15:35 82 17 06/12/18 15:31 83 11 L 147/72 H 06/12/18 15:30 84 12 06/12/18 15:27 80 11 L 06/12/18 15:26 82 9 L 136/72 06/12/18 15:24 36.5 C 83 84 12 116/77 116/77 06/12/18 08:01 80 91/49 L 06/12/18 08:00 37.4 C 80 18 91/49 L 06/11/18 23:06 36.6 C 73 14 97/61 L 06/11/18 20:10 36.8 C 75 24 133/75 06/11/18 19:45 71 12 06/11/18 19:40 71 12 06/11/18 19:35 70 13 06/11/18 19:31 71 11 L 128/72 06/11/18 19:30 72 16 06/11/18 19:25 70 16 06/11/18 19:23 71 22 06/11/18 19:20 70 13 06/11/18 19:15 71 10 L 06/11/18 19:10 71 22 06/11/18 19:09 72 14 136/89 06/11/18 19:01 71 16 131/69 06/11/18 19:00 76 21 06/11/18 18:50 68 24 06/11/18 18:40 71 22 06/11/18 18:32 70 25 H 117/73 06/11/18 18:30 71 26 H 06/11/18 18:20 69 23 06/11/18 18:10 69 26 H 06/11/18 18:00 68 15 06/11/18 17:50 68 21 06/11/18 17:40 71 29 H 06/11/18 17:33 69 17 118/51 L 06/11/18 17:30 67 15 06/11/18 17:20 67 14 06/11/18 17:10 67 17 06/11/18 17:01 69 24 124/75 06/11/18 17:00 68 21 06/11/18 16:50 70 24 06/11/18 16:40 70 35 H 06/11/18 16:31 70 25 H 138/93 06/11/18 16:30 71 18 06/11/18 16:24 69 23 Pulse Ox 06/12/18 16:19 85 L 06/12/18 15:43 87 L 06/12/18 15:41 97 06/12/18 15:40 92 06/12/18 15:36 98 06/12/18 15:35 94 06/12/18 15:31 89 L 06/12/18 15:30 87 L 06/12/18 15:27 95 06/12/18 15:26 94 06/12/18 15:24 95 06/12/18 08:01 06/12/18 08:00 94 06/11/18 23:06 94 06/11/18 20:10 95 06/11/18 19:45 98 06/11/18 19:40 96 06/11/18 19:35 95 06/11/18 19:31 95 06/11/18 19:30 94 06/11/18 19:25 96 06/11/18 19:23 98 06/11/18 19:20 97 06/11/18 19:15 93 06/11/18 19:10 98 06/11/18 19:09 98 06/11/18 19:01 94 06/11/18 19:00 99 06/11/18 18:50 100 06/11/18 18:40 99 06/11/18 18:32 99 06/11/18 18:30 96 06/11/18 18:20 99 06/11/18 18:10 98 06/11/18 18:00 96 06/11/18 17:50 100 06/11/18 17:40 100 06/11/18 17:33 99 06/11/18 17:30 96 06/11/18 17:20 97 06/11/18 17:10 96 06/11/18 17:01 99 06/11/18 17:00 91 06/11/18 16:50 99 06/11/18 16:40 97 02/16/19 16:31 100 06/11/18 16:30 91 06/11/18 16:24 100 Notes Mental Status: alert / awake / arousable Patient Amnestic to Procedure: Yes Nausea / Vomiting: adequately controlled Pain: adequately controlled Airway Patency, RR, SpO2: stable & adequate BP & HR: stable & adequate Hydration State: stable & adequate Anesthetic Complications: no major complications apparent
[2018-06-12] MEDS: TRAMADOL HCL 50 MG TABLET PO PRN (16:36)
--- NOTE | 2018-06-12 16:37 | XRay Report ---
XR hip RT 2-3V w pelvis CLINICAL HISTORY: post-op INTERTROCHANTERIC RIGHT HIP FRACTURE COMPARISON: 06/11/2018 DISCUSSION: 3 views are provided for interpretation. There is an internally fixated intertrochanteric hip fracture. A femoral neck canal and interlocking intramedullary paul are visualized. There are ove rlying skin bernice. There is gas within soft tissues consistent with recent surgery. Incidental note is made of bilateral tubal ligation clips. IMPRESSION: Internally fixated intertrochanteric right hip fracture Electronically signed by: Donovan Lima M.D. 06/12/2018 4:36 PM
[2018-06-12] MEDS: PATIENT'S HEIGHT AND/OR WEIGHT NEEDED SCH ×7 (19:26→22:15)
--- NOTE | 2018-06-12 20:05 | Consultation Report ---
DATE OF CONSULTATION: 06/12/2018 ORTHOPEDIC CONSULT CHIEF COMPLAINT: Right hip pain. SUBJECTIVE: The patient is a 77-year-old demented female from the dementia unit at [facility] who apparently suffered a fall and was not able to ambulate. She was brought to the [facility] ED for evaluation. X-rays revealed a right hip fracture. The patient was admitted to the hospital by the medicine service and an orthopedics consult was asked for. PAST MEDICAL HISTORY: Significant for dementia, pseudobulbar affect, hypertension, hyperlipidemia, depression, hypothyroidism. PHYSICAL EXAMINATION: GENERAL: This morning, she is lying in bed, appears fairly comfortable. She is not oriented and communicates inappropriately. She has an aide sitting at her bedside. The aide said she has appeared fairly comfortable overnight. EXTREMITIES: She is lying with her hip and knee flexed. Her thigh is relatively soft. X-RAYS: X-rays were reviewed. She has a displaced intertrochanteric right hip fracture. ASSESSMENT: Displaced intertrochanteric hip fracture. PLAN: Per her H and P, she has a DNR, although the daughter says she will reverse this for comfort measures. Normally, we would recommend ORIF for comfort to allow transfers, etc. for patient's care. The daughter's name is Danii Stout, phone number is [phone]. The patient's labs do show a sodium of 126, potassium of 5.5. Dr. Morrow will need to discuss this with the daughter and proceed as indicated.
[2018-06-12] MEDS: LORazepam 1 MG/2 ML VIAL IV PRN (21:03)
[2018-06-12] MEDS: DOCUSATE SODIUM/SENNA 50/8.6MG TAB PO SCH (21:14)
[2018-06-12] MEDS: ACETAMINOPHEN 500 MG TAB PO SCH (21:15)
[2018-06-12] MEDS: CEFAZOLIN 2000MG 2,000 MG/15 ML SYR IV SCH (21:18)
--- NOTE | 2018-06-12 23:31 | Operative Report ---
DATE OF OPERATION: 06/12/2018 PREOPERATIVE DIAGNOSIS: Right displaced intertrochanteric hip fracture. POSTOPERATIVE DIAGNOSIS: Right displaced intertrochanteric hip fracture. PROCEDURE: Open reduction internal fixation of right intertrochanteric hip fracture using a Synthes trochanteric fixation nail 11 x 235 mm in length, 95 x 11 mm spiral blade, and a distal locking screw. SURGEON: Zackary Morrow DO SALES COACH: Tra Howe PA-C who was present for patient positioning, sterile prep and drape, management of retractors and instruments. He was present through the critical portions of the case including wound closure, application of sterile dressing and transport of the patient to recovery. ANESTHESIA: General endotracheal tube with local. SPECIMENS: None. DRAINS: None. COMPLICATIONS: None. BLOOD LOSS: 10 mL PERTINENT HISTORY: This is a 77-year-old female who sustained a mechanical fall on to her right hip. Unable to ambulate, transferred to [facility] from her nursing care facility and was diagnosed with a displaced right intertrochanteric hip fracture. She was admitted to the medical service due to other medical comorbidities and was then scheduled for surgery as indicated. All potential risks, benefits, complications, alternatives, rehab, potential for incomplete relief of symptoms, need for further surgery, DVT, persistent pain, swelling, scarring, weakness, neurovascular injury, complications, wound complications, bone fracture, nonunion, malunion, and hardware failure were discussed with the patient and her power of attorney lawyer, skyeate Vishnu Galloway. The patient's primary POA, Danii Galloway was available due to a hiking trip with no available communication. She had previously designated her daughter as the designate for the patient, who is secondary POA's grandmother. There was a long discussion regarding the patient's care with the POA as well as Jesus Gibbons, market risk analyst, and Sammy Omalley MD, the anesthesiologist. The patient's medical condition was optimized and deemed necessary to proceed with surgery as indicated. DESCRIPTION OF PROCEDURE: The patient was transferred to the operative suite. The proper site was identified. The consent was reviewed, the patient was then administered sedation and spinal anesthetic. Once appropriate, the patient then transferred to the fracture table where the lower extremity was placed in fracture table traction and the nonoperative leg was placed in the well leg soliman. All bony prominences were properly padded and protected. The padded post was placed in the peroneal and the patient was positioned appropriately. Next the left leg was placed on traction and reduction of the fracture was performed under fluoroscopic control. Next the operative hip was then sterilely prepped and draped in the usual fashion. Next a 10-blade scalpel incision was used to make an incision proximal to the greater trochanter. The incision was deep in the subcutaneous tissue and fascia and the tip of the greater trochanter was then palpated followed by placement of a guide pin under fluoroscopic control driven into the greater trochanter down to the level of the less trochanter. This was confirmed in AP and lateral projections followed by placement of the proximal reamer over the cannulated guide pin. Next the reamer was then removed using the soft tissue protector, which was also removed. Next the ball tip guide paul was placed into the proximal femur under fluoroscopic control confirmed with AP and lateral fluoroscope projections. Next the trochanteric nail was then passed over the guide paul into the femur, the guide paul was removed and then under fluoroscopic control appropriate level of the femoral nail was then placed in AP projections. Next the targeting device was then fixed to the driving handle and 10-blade scalpel incision was made in the lateral aspect of the thigh. Next the tissue protector and cannulated guide system was then passed into the soft tissue until it was securely fixed against a lateral aspect of the femoral cortex. This was also confirmed under C-arm. Next the guide pin for the spiral blade was driven into the lateral aspect of the femur confirming this with AP lateral projections until the guide pin was in the center of the femoral neck and head approximately 5 mm from the subcortical bone of the femur. Next the spiral blade was then measured and then the lateral cortex was then drilled with the cortex reamer followed by use of the triple reamer with the depth stop set at appropriate depth. In this case a Synthes trochanteric fixation nail 11 x 235 mm in length, 95 x 11 mm spiral blade was then inserted over the cannulated guide paul under fluoroscopic control. This was seated appropriately then traction was reduced from the limb and the fracture was then gently compressed and then locked proximally with the flexible screwdriver. Next the spiral blade was then disengaged from its insertion handle, insertion handle was then removed and the guide pin was removed from the femoral neck and head. Next the lateral targeting arm was used to insert the distal locking screw. First a 10-blade scalpel incision was made in the lateral aspect of the thigh, captured drill sleeves were then tamped gently to the lateral aspect of the femoral cortex then the locking screw hole was then drilled, measured and then an appropriate length screw was placed to lock the distal aspect of the nail. Next targeting sleeves were then removed. The insertion arm was then removed from the nail and final x-rays were obtained in AP and lateral projections. All incisions were then copiously irrigated with sterile normal saline. The proximal gluteus fascia was then closed using interrupted #1 Vicryl, the dermis was closed using buried interrupted 2-0 Vicryl sutures in all three incisions and the skin was then closed using skin bernice. A sterile compressive dressing consisting of Xeroform gauze, sterile 4 x 4's and Tegaderm was applied. The patient was then awakened and taken to recovery in stable condition. I attest to the content of the Intraoperative Record and any orders documented therein. Any exceptions are noted below. MINERVA
[2018-06-13] MEDS: TRAMADOL HCL 50 MG TABLET PO PRN ×3 (02:14→20:20)
[2018-06-13] MEDS: LORazepam 1 MG/2 ML VIAL IV PRN ×2 (04:55→12:16)
[2018-06-13] MEDS: CEFAZOLIN 2000MG 2,000 MG/15 ML SYR IV SCH (05:25)
[2018-06-13] MEDS: ACETAMINOPHEN 500 MG TAB PO SCH ×3 (05:32→22:00)
[2018-06-13] MEDS: LEVOTHYROXINE SODIUM 100 MCG TABLET PO SCH (05:32)
[2018-06-13 07:11] LABS: Hematocrit (blood only) 19.9 % (37-47); Hemoglobin 6.7 g/dL (12.0-16.0); Mean Corpuscular Hgb Conc 33.7 g/dL (32-36); Mean Corpuscular Volume 88.4 fL (80-100); Mean Platelet Volume 8.6 fL (7.4-10.4); Platelet Count 216 K/uL (130-400); RDW Coefficient of Variation 14.2 % (11.5-14.5); RDW Standard Deviation 46.1 fL (36.4-46.3); Red Blood Count 2.25 M/uL (4.2-5.4); White Blood Count 11.74 K/uL (4.8-10.8)
[2018-06-13 07:32] LABS: Alanine Aminotransferase 16 U/L (12-78); Albumin Level 2.7 gm/dl (3.4-5.0); Aspartate Aminotransferase 25 U/L (15-37); BUN Creatinine Ratio 14.7 (10-20); Blood Urea Nitrogen 18 mg/dl (7-18); Calcium 8.2 mg/dl (8.5-10.1); Carbon Dioxide 26 mmol/L (21-32); Chloride 96 mmol/L (98-107); Est GFR (African American) 51.2; Est GFR (Non-African American) 44.2; Glucose 107 mg/dl (70-99); Potassium 4.7 mmol/L (3.5-5.1); Sodium 129 mmol/L (136-145)
[2018-06-13 07:33] LABS: Basophils # (auto) 0.01 K/uL (0-0.2); Basophils % (auto) 0.1 %; Immature Granulocytes # (auto) 0.04 K/uL (0.00-0.02); Immature Granulocytes % (auto) 0.3 %; Lymphocytes # (auto) 0.87 K/uL (1.2-3.4); Lymphocytes % (auto) 7.4 %; Monocytes # (auto) 1.79 K/uL (0.11-0.59); Monocytes % (auto) 15.2 %; Neutrophils # (auto) 9.03 K/uL (1.4-6.5)
[2018-06-13 07:35] LABS: Albumin Globulin Ratio 0.8 (0.9-2); Alkaline Phosphatase 47 U/L (45-117); Bilirubin,Total 0.3 mg/dl (0.2-1); Globulin 3.4 gm/dl (2.5-4.0); Total Protein 6.1 gm/dl (6.4-8.2)
[2018-06-13] MEDS: CHOLECALCIFEROL 1,000 UNITS TAB PO SCH (07:44)
[2018-06-13] MEDS: DIVALPROEX DELAY RELEASE 250 MG TABEC PO SCH ×2 (07:44→20:18)
[2018-06-13] MEDS: LISINOPRIL 5 MG TAB PO SCH (07:44)
[2018-06-13] MEDS: SERTRALINE HCL 50 MG TABLET PO SCH (07:45)
[2018-06-13] MEDS: DIVALPROEX DELAY RELEASE 125 MG TABEC PO SCH (07:45)
[2018-06-13] MEDS: LACTOBACILLUS ACIDOPHILUS (FLORANEX) TAB PO SCH (07:45)
[2018-06-13] MEDS: ATENOLOL 25 MG TABLET PO SCH (07:45)
[2018-06-13] MEDS ORDERED: SODIUM CHLORIDE 0.9% 250 ML IV PRN (07:48)
--- NOTE | 2018-06-13 08:14 | Orthopedic Progress Note ---
Date of Service June 13, 2018 Assessment & Plan (1) Intertrochanteric fracture of right hip: Patient to be given blood today due to low hemoglobin. She will be able to start PT and OT protocols with weightbearing as tolerated. Plan for dressing change tomorrow.DVT prophylaxis with enoxaparin, SCDs, MELVIN tamayo Subjective Postop day 1 status post right TFN. Patient is awake and alert. She is very talkative and pleasantly confused. She currently has one-on-one nursing. She denies any hip pain today. Nursing states that she does have pain when trying to get out of bed.Hemoglobin has dropped down to 6.7 and she currently has blood on order. Physical Exam 2 Vital Signs (Past 24 Hours): Last Vital Signs Temp 36.6 C 06/13/18 07:02 Pulse 101 H 06/13/18 07:02 Resp 18 06/13/18 07:02 BP 120/91 06/13/18 07:02 Pulse Ox 97 06/13/18 07:02 Physical Exam: Right thigh is swollen but soft. No tenderness on palpation. Current dressing is clean, dry, and intact. She denies calf tenderness on palpation. She has good range of motion of her right ankle and toes. Neurovascular appears intact. _ (1) Intertrochanteric fracture of right hip Encounter type: initial encounter Fracture alignment: displaced Fracture healing: Fracture type: closed Open fracture type: Qualified Code(s): S72.141A - Displaced intertrochanteric fracture of right femur, initial encounter for closed fracture
--- NOTE | 2018-06-13 08:29 | Anesthesiology Progress Note ---
Date of Service June 13, 2018 Anesthesia Post Procedure Vital Signs Vital Signs: Temp Pulse Pulse Resp BP BP Pulse Ox 06/13/18 07:02 36.6 C 101 H 18 120/91 97 06/13/18 03:59 37.5 C 85 16 127/65 96 06/12/18 23:07 36.8 C 89 16 104/69 98 06/12/18 19:17 37.7 C H 89 17 107/64 97 06/12/18 18:11 37.4 C 90 20 102/66 99 06/12/18 17:21 37.4 C 79 18 116/69 97 06/12/18 16:44 36.4 C L 85 22 123/51 L 98 06/12/18 16:19 36.4 C L 85 16 133/77 85 L 06/12/18 15:43 86 16 133/77 87 L 06/12/18 15:41 83 17 153/105 H 97 06/12/18 15:40 84 16 92 06/12/18 15:36 83 15 159/76 H 98 06/12/18 15:35 82 17 94 06/12/18 15:31 83 11 L 147/72 H 89 L 06/12/18 15:30 84 12 87 L 06/12/18 15:27 80 11 L 95 06/12/18 15:26 82 9 L 136/72 94 06/12/18 15:24 36.5 C 83 84 12 116/77 116/77 95 Notes Mental Status: alert / awake / arousable (alert and awake, but limited ability to communicate d/t dementia) Patient Amnestic to Procedure: Yes Nausea / Vomiting: adequately controlled Pain: adequately controlled Airway Patency, RR, SpO2: stable & adequate BP & HR: stable & adequate Hydration State: stable & adequate
[2018-06-13] MEDS ORDERED: ACETAMINOPHEN 65 ML IV ONE (08:47)
[2018-06-13] MEDS ORDERED: ENOXAPARIN INJ 40 MG/0.4 ML SYR SQ SCH (09:00)
[2018-06-13] MEDS: CHOLESTYRAMINE LIGHT 4 GM PKT PO SCH (09:56)
--- NOTE | 2018-06-13 11:15 | Family Medicine Progress Note ---
Date of Service June 13, 2018 Assessment & Plan (1) Intertrochanteric fracture of right hip: 77 y/o F with PMH advanced dementia, psuedobulbar affect, schizophrenia, HTN, HLD, depression/anxiety, hypothyroidism presents from [facility] where she suffered a fall and found to have R intertrochanteric fracture along with hyponatremia. 1) R Intertrochanteric hip fx -POD 1, s/p ORIF -PT/OT starting tomorrow -cont analgesics -vit d 32.8- will cont home vit d3 2000 units . Consider outpt DEXA 2) Anemia -likely 2/2 fx/post-op -low h/h 6.7/19.9 this AM--> 2 units pRBCs transfused -will cont trend h/h 3) Hyponatremia -Na 129 today, cont NSS -Previous hospital visits throughout Summer 2017 showed high 120's-low 130s -will cont monitor 4) Pseudobulbar affect -The pt cannot communicate and exhibits disruptive behavior. This is apparently her baseline -Cont Depakote and Nuedexta and one to one obs 5) HTN -cont atenolol 25 mg, Lisinopril 5 mg daily 6) Hypothyroidism -cont levothyroxine 100 mcg daily 7) Depression/Anxiety -cont sertraline 50 mg daily 8) UTI -urine cx shows E. Coli -IV rocephin started FEN: NSS 80, Na 129, Regular Diet DNR (FULL for surgery only per daughter) DVT Prophylaxis: SCDs, TEDs, Lovenox will be started tomorrow AM Dispo: Sx then [facility] Supervising Physician Co-Signing Physician Notes I personally examined the patient and verified all carpio points of history and exam, discussed case, and agree with decision making with Dr Burr. Feeling good, denies hip pain. No distress. Vitals noted, in general she is awake and alert no distress. HEENT normocephalic atraumatic mucous membranes are moist. Skin shows no rashes maybe mild pallor or icterus. Hip fracture�(possibly osteoporotic) continue pain control and supportive care. Continue to supplement vitamin D. Consider empiric treatment of osteoporosis versus DEXA scan. Fever/UTI�ceftriaxone Anemia�acute blood loss related to hip fracture, transfuse Otherwise as above. Subjective 77 y/o F found in bed this AM. Subjective hx difficult to obtain given pt's advanced dementia/pseudobulbar affect. Dunaway in place. Doing well s/p hip sx, POD 1. Resident paged this AM with reports of low h/h. R hip pain tolerated well with pain meds. Pt reports no other acute concerns or complaints. Physical Exam 2 Vital Signs (Past 24 Hours): Last Vital Signs Temp 37.7 C H 06/13/18 10:59 Pulse 97 H 06/13/18 10:59 Resp 18 06/13/18 10:59 BP 107/51 L 06/13/18 10:59 Pulse Ox 96 06/13/18 10:59 Constitutional: WD/WN, vitals as above Eyes: PERRL, conjunctivae normal, anicteric sclerae ENMT: external ear and nose normal, oropharynx normal Respiratory: normal respiratory effort, lungs clear to auscultation Cardiovascular: RRR, no murmur, no edema Gastrointestinal (Abdomen): normal bowel sounds, soft, nontender, no hepatosplenomegaly Musculoskeletal: Dressing C/D/I No calf tenderness Skin: no rashes, warm and dry Psychiatric: Insight: + poor insight Results & Data Laboratory Results Laboratory Results - last 24 hr 06/11/18 06/12/18 06/13/18 16:27 16:45 06:43 WBC 11.74 H RBC 2.25 L Hgb 6.7 L* D Hct 19.9 L* MCV 88.4 MCH 29.8 MCHC 33.7 RDW Std Deviation 46.1 RDW Coeff of [place]ko 14.2 Plt Count 216 MPV 8.6 Immature Gran % (Auto) 0.3 Neut % (Auto) 77.0 Lymph % (Auto) 7.4 [place] % (Auto) 15.2 Eos % (Auto) 0.0 Baso % (Auto) 0.1 Immature Gran # (Auto) 0.04 H Neut # (Auto) 9.03 H Lymph # (Auto) 0.87 L [place] # (Auto) 1.79 H Eos # (Auto) 0.00 Baso # (Auto) 0.01 Acanthocytes (Spur) 1+ Sodium Potassium Chloride Carbon Dioxide Anion Gap BUN Creatinine Est Cr Clr Drug Dosing Est GFR ( Amer) Est GFR (Non-Af Amer) BUN/Creatinine Ratio Glucose Calcium Total Bilirubin AST ALT Alkaline Phosphatase Total Protein Albumin Globulin Albumin/Globulin Ratio 25-OH Vitamin D Total 32.8 Blood Type O Positive Blood Type Recheck Antibody Screen NEGATIVE Crossmatch See Detail 06/13/18 06/13/18 06:43 06:43 WBC RBC Hgb Hct MCV MCH MCHC RDW Std Deviation RDW Coeff of [place] Plt Count MPV Immature Gran % (Auto) Neut % (Auto) Lymph % (Auto) [place] % (Auto) Eos % (Auto) Baso % (Auto) Immature Gran # (Auto) Neut # (Auto) Lymph # (Auto) [place] # (Auto) Eos # (Auto) Baso # (Auto) Acanthocytes (Spur) Sodium 129 L Potassium 4.7 Chloride 96 L Carbon Dioxide 26 Anion Gap 7.0 BUN 18 Creatinine 1.20 Est Cr Clr Drug Dosing Not Reportable Est GFR ( Amer) 51.2 Est GFR (Non-Af Amer) 44.2 BUN/Creatinine Ratio 14.7 Glucose 107 H Calcium 8.2 L Total Bilirubin 0.3 AST 25 ALT 16 Alkaline Phosphatase 47 Total Protein 6.1 L Albumin 2.7 L Globulin 3.4 Albumin/Globulin Ratio 0.8 L 25-OH Vitamin D Total Blood Type Blood Type Recheck O Positive Antibody Screen Crossmatch Medications Administered Current Inpatient Medications Acetaminophen (Tylenol) 1,000 mg PO Q8 ON LICENSE OF [facility] Stop: 07/12/18 21:59 Last Admin: 06/13/18 05:32 Dose: 1,000 mg Atenolol (Tenormin) 25 mg PO DAILY ON LICENSE OF [facility] Stop: 07/12/18 08:59 Last Admin: 06/13/18 07:45 Dose: 25 mg Bisacodyl (Dulcolax) 10 mg [place] DAILY PRN PRN Reason: Constipation Stop: 07/11/18 20:00 Cholestyramine Resin (Questran) 4 gm PO DAILY@1000 ON [facility] OF [facility] Stop: 07/12/18 09:59 Last Admin: 06/13/18 09:56 Dose: 4 gm Divalproex Sodium (Depakote Delay Release) 250 mg PO BID ON LICENSE OF [facility] Stop: 07/11/18 20:59 Last Admin: 06/13/18 07:44 Dose: 250 mg Divalproex Sodium (Depakote Delay Release) 125 mg PO DAILY ON [facility] OF [facility] Stop: 07/12/18 08:59 Last Admin: 06/13/18 07:45 Dose: 125 mg Hydromorphone HCl (Dilaudid) 0.25 - 0.5 mg IV Q20M PRN PRN Reason: Pain Stop: 06/25/18 20:00 Last Admin: 06/12/18 21:05 Dose: 0.5 mg Lorazepam (Ativan) 1 mg in 2 mls @ 0.5 mls/min IV Q6H PRN PRN Reason: Agitation Stop: 07/11/18 20:00 Last Admin: 06/13/18 04:55 Dose: 0.5 mls/min Sodium Chloride (Nss 250ml) 250 mls @ 15 mls/hr IV .[id number] PRN PRN Reason: For Transfusion Stop: 07/13/18 07:47 Lactobacillus Acidophilus (Floranex) 1 tab PO DAILY [facility] Stop: 07/13/18 08:59 Last Admin: 06/13/18 07:45 Dose: 1 tab Levothyroxine Sodium (Synthroid) 100 mcg PO DAILYBB ON [facility] OF [facility] Stop: 07/12/18 06:29 Last Admin: 06/13/18 05:32 Dose: 100 mcg Lisinopril (Zestril) 5 mg PO DAILY [facility] Stop: 07/13/18 08:59 Last Admin: 06/13/18 07:44 Dose: 5 mg Magnesium Hydroxide (Milk Of Magnesia) 30 ml PO DAILY PRN PRN Reason: Constipation Stop: 07/11/18 20:00 Miscellaneous (Order Awaiting Action) 1 ea N/A QS ON LICENSE OF [facility] Stop: 07/12/18 00:00 Last Admin: 06/13/18 07:44 Dose: Not Given Naloxone HCl (Narcan) 0.1 mg IV UD PRN PRN Reason: opiate overdose Stop: 07/11/18 20:00 Senna/Docusate Sodium (Senokot S) 2 tab PO HS ON LICENSE OF [facility] Stop: 07/11/18 20:59 Last Admin: 06/12/18 21:14 Dose: 2 tab Sertraline HCl (Zoloft) 50 mg PO DAILY [facility] Stop: 07/12/18 08:59 Last Admin: 06/13/18 07:45 Dose: 50 mg Sodium Biphosphate/Sodium Phosphate (Fleet Enema) 132 ml [place] DAILY PRN PRN Reason: Constipation Stop: 07/11/18 20:00 Tramadol HCl (Ultram) 50 mg PO Q4H PRN PRN Reason: Pain Stop: 07/12/18 16:16 Last Admin: 06/13/18 02:14 Dose: 50 mg Vitamin D (Vitamin D3) 2,000 units PO DAILY [facility] Stop: 07/13/18 08:59 Last Admin: 06/13/18 07:44 Dose: 2,000 units Resident Activity Tracking Resident Involvement: Resident Care Provided Care Provided: [facility] _ (1) Intertrochanteric fracture of right hip Encounter type: initial encounter Fracture alignment: displaced Fracture healing: Fracture type: closed Open fracture type: Qualified Code(s): S72.141A - Displaced intertrochanteric fracture of right femur, initial encounter for closed fracture
[2018-06-13] MEDS: SODIUM CHLORIDE 0.9% 1000ML 1,000 ML IV SCH (16:14)
[2018-06-13] MEDS ORDERED: IBUPROFEN 600 MG TAB PO PRN (16:42)
[2018-06-13] MEDS: cefTRIAXone SODIUM 1,000 MG in DEXTROSE 5% 50 ML IV SCH (16:54)
[2018-06-13] MEDS: HYDROmorphone INJ 0.5 MG/0.5 ML SYR IV PRN (17:32)
[2018-06-13] MEDS: DOCUSATE SODIUM/SENNA 50/8.6MG TAB PO SCH (20:18)
[2018-06-14] MEDS: SODIUM CHLORIDE 0.9% 1000ML 1,000 ML IV SCH (04:36)
[2018-06-14] MEDS: LEVOTHYROXINE SODIUM 100 MCG TABLET PO SCH (05:52)
[2018-06-14] MEDS: ACETAMINOPHEN 500 MG TAB PO SCH ×2 (05:52→13:41)
[2018-06-14 07:08] LABS: Basophils # (auto) 0.04 K/uL (0-0.2); Basophils % (auto) 0.4 %; Eosinophils # (auto) 0.29 K/uL (0-0.5); Hematocrit (blood only) 24.5 % (37-47); Hemoglobin 8.3 g/dL (12.0-16.0); Immature Granulocytes # (auto) 0.03 K/uL (0.00-0.02); Immature Granulocytes % (auto) 0.3 %; Lymphocytes # (auto) 1.26 K/uL (1.2-3.4); Lymphocytes % (auto) 13.2 %; Mean Corpuscular Hgb Conc 33.9 g/dL (32-36); Mean Corpuscular Volume 87.5 fL (80-100); Mean Platelet Volume 8.9 fL (7.4-10.4); Monocytes # (auto) 1.55 K/uL (0.11-0.59); Monocytes % (auto) 16.2 %; Neutrophils % (auto) 66.9 %; Platelet Count 190 K/uL (130-400); RDW Coefficient of Variation 14.5 % (11.5-14.5); RDW Standard Deviation 47.2 fL (36.4-46.3); White Blood Count 9.57 K/uL (4.8-10.8)
[2018-06-14 07:36] LABS: RBC Morphology Unremarkable
[2018-06-14 07:43] LABS: Alanine Aminotransferase 17 U/L (12-78); Albumin Globulin Ratio 0.8 (0.9-2); Albumin Level 2.6 gm/dl (3.4-5.0); Alkaline Phosphatase 50 U/L (45-117); Aspartate Aminotransferase 29 U/L (15-37); BUN Creatinine Ratio 19.6 (10-20); Bilirubin,Total 0.4 mg/dl (0.2-1); Blood Urea Nitrogen 14 mg/dl (7-18); Calcium 7.9 mg/dl (8.5-10.1); Carbon Dioxide 28 mmol/L (21-32); Chloride 96 mmol/L (98-107); Est GFR (African American) 98.2; Est GFR (Non-African American) 84.8; Globulin 3.1 gm/dl (2.5-4.0); Glucose 85 mg/dl (70-99); Potassium 4.5 mmol/L (3.5-5.1); Sodium 129 mmol/L (136-145); Total Protein 5.7 gm/dl (6.4-8.2)
[2018-06-14] MEDS: LISINOPRIL 5 MG TAB PO SCH (08:27)
[2018-06-14] MEDS: LACTOBACILLUS ACIDOPHILUS (FLORANEX) TAB PO SCH (08:27)
[2018-06-14] MEDS: SERTRALINE HCL 50 MG TABLET PO SCH (08:27)
[2018-06-14] MEDS: DIVALPROEX DELAY RELEASE 250 MG TABEC PO SCH (08:27)
[2018-06-14] MEDS: DIVALPROEX DELAY RELEASE 125 MG TABEC PO SCH (08:28)
[2018-06-14] MEDS: ATENOLOL 25 MG TABLET PO SCH (08:28)
[2018-06-14] MEDS: CHOLECALCIFEROL 1,000 UNITS TAB PO SCH (08:28)
--- NOTE | 2018-06-14 09:26 | Family Medicine Progress Note ---
Date of Service June 14, 2018 Assessment & Plan (1) Intertrochanteric fracture of right hip: 77 y/o F with PMH advanced dementia, psuedobulbar affect, schizophrenia, HTN, HLD, depression/anxiety, hypothyroidism presents from [facility] where she suffered a fall and found to have R intertrochanteric fracture along with hyponatremia. 1) R Intertrochanteric hip fx -POD 2, s/p ORIF -PT/OT today -cont analgesics -vit d 32.8- will cont home vit d3 2000 units . Consider outpt DEXA 2) Anemia -likely 2/2 fx/post-op -improved h/h 8.3/24.5 this AM -will cont trend h/h and transfuse as needed 3) Hyponatremia -Na 129 today, cont NSS -Previous hospital visits throughout Summer 2017 showed high 120's-low 130s -will cont monitor 4) Pseudobulbar affect -The pt cannot communicate and exhibits disruptive behavior. This is apparently her baseline -Cont Depakote and Nuedexta and one to one obs 5) HTN -cont atenolol 25 mg, Lisinopril 5 mg daily 6) Hypothyroidism -cont levothyroxine 100 mcg daily 7) Depression/Anxiety -cont sertraline 50 mg daily 8) UTI -urine cx shows E. Coli -IV rocephin started FEN: NSS 80, Na 129, Regular Diet DNR DVT Prophylaxis: SCDs, TEDs, Lovenox Dispo: D/c to [facility] pending PT/OT Subjective 77 y/o F found in bed this AM. Subjective hx difficult to obtain given pt's advanced dementia/pseudobulbar affect. Dunaway in place. Doing well s/p hip sx, POD 2. No reports of fever. R hip pain tolerated well with pain meds. Pt ok to work with therapy today. Pt reports no other acute concerns or complaints. Physical Exam 2 Vital Signs (Past 24 Hours): Last Vital Signs Temp 37.3 C 06/14/18 07:11 Pulse 83 06/14/18 07:11 Resp 18 06/14/18 07:11 BP 120/75 06/14/18 07:11 Pulse Ox 95 06/14/18 07:11 Constitutional: WD/WN, vitals as above Eyes: PERRL, conjunctivae normal, anicteric sclerae ENMT: external ear and nose normal, oropharynx normal Respiratory: normal respiratory effort, lungs clear to auscultation Cardiovascular: RRR, no murmur, no edema Gastrointestinal (Abdomen): normal bowel sounds, soft, nontender, no hepatosplenomegaly Skin: no rashes, warm and dry Psychiatric: Insight: + poor insight Results & Data Laboratory Results Laboratory Results - last 24 hr 06/11/18 06/14/18 06/14/18 16:27 06:54 06:54 WBC 9.57 RBC 2.80 L Hgb 8.3 L Hct 24.5 L MCV 87.5 MCH 29.6 MCHC 33.9 RDW Std Deviation 47.2 H RDW Coeff of Cheko 14.5 Plt Count 190 MPV 8.9 Immature Gran % (Auto) 0.3 Neut % (Auto) 66.9 Lymph % (Auto) 13.2 [place] % (Auto) 16.2 Eos % (Auto) 3.0 Baso % (Auto) 0.4 Immature Gran # (Auto) 0.03 H Neut # (Auto) 6.40 Lymph # (Auto) 1.26 [place] # (Auto) 1.55 H Eos # (Auto) 0.29 Baso # (Auto) 0.04 RBC Morphology Unremarkable Sodium 129 L Potassium 4.5 Chloride 96 L Carbon Dioxide 28 Anion Gap 5.0 BUN 14 Creatinine 0.70 D Est Cr Clr Drug Dosing Not Reportable Est GFR ( Amer) 98.2 Est GFR (Non-Af Amer) 84.8 BUN/Creatinine Ratio 19.6 Glucose 85 Calcium 7.9 L Total Bilirubin 0.4 AST 29 ALT 17 Alkaline Phosphatase 50 Total Protein 5.7 L Albumin 2.6 L Globulin 3.1 Albumin/Globulin Ratio 0.8 L Blood Type O Positive Antibody Screen NEGATIVE Crossmatch See Detail Medications Administered Current Inpatient Medications Acetaminophen (Tylenol) 1,000 mg PO Q8 [facility] Stop: 07/12/18 21:59 Last Admin: 06/14/18 05:52 Dose: 1,000 mg Atenolol (Tenormin) 25 mg PO DAILY [facility] Stop: 07/12/18 08:59 Last Admin: 06/14/18 08:28 Dose: 25 mg Bisacodyl (Dulcolax) 10 mg [place] DAILY PRN PRN Reason: Constipation Stop: 07/11/18 20:00 Cholestyramine Resin (Questran) 4 gm PO DAILY@1000 [facility] Stop: 07/12/18 09:59 Last Admin: 06/13/18 09:56 Dose: 4 gm Divalproex Sodium (Depakote Delay Release) 250 mg PO BID [facility] Stop: 07/11/18 20:59 Last Admin: 06/14/18 08:27 Dose: 250 mg Divalproex Sodium (Depakote Delay Release) 125 mg PO DAILY [facility] Stop: 07/12/18 08:59 Last Admin: 06/14/18 08:28 Dose: 125 mg Hydromorphone HCl (Dilaudid) 0.25 - 0.5 mg IV Q20M PRN PRN Reason: Pain Stop: 06/25/18 20:00 Last Admin: 06/13/18 17:32 Dose: 0.5 mg Lorazepam (Ativan) 1 mg in 2 mls @ 0.5 mls/min IV Q6H PRN PRN Reason: Agitation Stop: 07/11/18 20:00 Last Admin: 06/13/18 12:16 Dose: 0.5 mls/min Ceftriaxone Sodium 1,000 mg/ (Dextrose) 60 mls @ 100 mls/hr IV DAILY@1400 [facility]; Protocol Stop: 06/18/18 13:59 Last Infusion: 06/13/18 18:09 Dose: Infused Sodium Chloride (Nss 1000ml) 1,000 mls @ 80 mls/hr IV .[id number] [facility] Stop: 07/13/18 13:29 Last Infusion: 06/14/18 06:05 Dose: 80 mls/hr Ibuprofen (Motrin) 600 mg PO Q6H PRN PRN Reason: Fever Stop: 07/13/18 16:41 Last Admin: 06/13/18 17:05 Dose: 600 mg Lactobacillus Acidophilus (Floranex) 1 tab PO DAILY [facility] Stop: 07/13/18 08:59 Last Admin: 06/14/18 08:27 Dose: 1 tab [facility]: 07/12/18 06:29 Last Admin: 06/14/18 05:52 Dose: 100 mcg Lisinopril (Zestril) 5 mg PO DAILY [facility] Stop: 07/13/18 08:59 Last Admin: 06/14/18 08:27 Dose: 5 mg Magnesium Hydroxide (Milk Of Magnesia) 30 ml PO DAILY PRN PRN Reason: Constipation Stop: 07/11/18 20:00 Miscellaneous (Order Awaiting Action) 1 ea N/A QS [facility] Stop: 07/12/18 00:00 Last Admin: 06/14/18 08:25 Dose: Not Given Naloxone HCl (Narcan) 0.1 mg IV UD PRN PRN Reason: opiate overdose Stop: 07/11/18 20:00 Senna/Docusate Sodium (Senokot S) 2 tab PO HS [facility] Stop: 07/11/18 20:59 Last Admin: 06/13/18 20:18 Dose: 2 tab Sertraline HCl (Zoloft) 50 mg PO DAILY [facility] Stop: 07/12/18 08:59 Last Admin: 06/14/18 08:27 Dose: 50 mg Sodium Biphosphate/Sodium Phosphate (Fleet Enema) 132 ml [place] DAILY PRN PRN Reason: Constipation Stop: 07/11/18 20:00 Tramadol HCl (Ultram) 50 mg PO Q4H PRN PRN Reason: Pain Stop: 07/12/18 16:16 Last Admin: 06/13/18 20:20 Dose: 50 mg Vitamin D (Vitamin D3) 2,000 units PO DAILY [facility] Stop: 07/13/18 08:59 Last Admin: 06/14/18 08:28 Dose: 2,000 units Resident Activity Tracking Resident Involvement: Resident Care Provided Care Provided: [facility] Medicine _ (1) Intertrochanteric fracture of right hip Encounter type: initial encounter Fracture alignment: displaced Fracture healing: Fracture type: closed Open fracture type: Qualified Code(s): S72.141A - Displaced intertrochanteric fracture of right femur, initial encounter for closed fracture
--- NOTE | 2018-06-14 10:08 | Discharge Summary ---
Date of Service June 14, 2018 Admission HPI Per Admitting Provider 76 y/o F Hx advanced dementia, psuedobulbar affect, HTN, HLD, depression/anxiety , hypothyroidism. She presents from a dementia unit of a detention where she suffered a fall and was not able to ambulate following. On arrival to the ER a R intertrochanteric fracture was confirmed. The pt cannot communicate and exhibits disruptive behavior. this is apparently her baseline. She does ambulate independently. Initial labs are notable for hyponatremia with a sodium of 122. PMH: 1) Advanced dementia - unknown etiology - onset at age 70 - exhibits psychotic features 2) Hypothroidism 3) HTN 4) HLD 5) Pseudobulbar affect 6) Depression/anxiety Surgical: Limited to carpal release Social: Quit smoking 25 years ago, does not drink - resides in a dementia unit Family: Father - colon CA Mother - comlications of dementia Principal Diagnosis r hip fx Discharge Exam Constitutional WD/WN, vitals as above Eyes PERRL, conjunctivae normal, anicteric sclerae ENMT external ear and nose normal, oropharynx normal Respiratory normal respiratory effort, lungs clear to auscultation Cardiovascular RRR, no murmur, no edema Gastrointestinal (Abdomen) normal bowel sounds, soft, nontender, no hepatosplenomegaly Musculoskeletal R hip swollen/soft. Bandage C/D/I Skin no rashes, warm and dry Psychiatric Insight: + limited insight Judgement: + limited judgement Discharge Data Allergies Allergy/AdvReac Type Severity Reaction Status Date / Time codeine Allergy Unknown UNKNOWN Verified 06/11/18 17:20 hydrocodone Allergy Unknown UNKNOWN Verified 06/11/18 17:20 Consultations 06/11/18 18:06 Consult Orthopedic Surgery Stat 06/11/18 18:07 ED Decision to Admit Stat 06/11/18 20:01 Consult Case Management - Discharge Planning Routine Consult Orthopedic Surgery Routine Procedures Performed Operation Date: 06/12/18 11:00 Actual Procedures p Intramedullary Kye Femur(Right) - Zackary Morrow DO Ordered Studies 06/12/18 07:00 FL fluoroscopy <1hr Routine FL hip RT 2-3V Routine Hospital Course (1) Intertrochanteric fracture of right hip: 77 y/o F with PMH advanced dementia, psuedobulbar affect, schizophrenia, HTN, HLD, depression/anxiety, hypothyroidism presented to [facility] from a dementia unit of [facility] where she suffered a fall and was not able to ambulate following. On arrival to the ER a R intertrochanteric fracture was confirmed. Pt noted to ambulate independently in home. Initial labs were notable for hyponatremia with a sodium of 122. The following is the medical management during her stay here. 1) R Intertrochanteric hip fx -Pt had ORIF to fix fx -PT/OT worked with pt post op. Pt participated within her tolerance. Needed max assistance with bed mobility and min assistance with sit-stand transfer. -Analgesics: Ultram, Tylenol. Pt will continue these on d/c. -vit d low normal 32.8- Continued on home vit d3 2000 units . Consider outpt DEXA 2) Anemia -on POD1, pt had low hgb of low 6. Was transfused 2 units pRBCs and next day h/ h was stable. Last hgb 8.3. -Was likely 2/2 fx/post-op -improved h/h 8.3/24.5 this AM 3) Hyponatremia -Na 129 on d/c, we continued NSS with noted improvement during her stay here -Previous hospital visits throughout Summer 2018 showed high 120's-low 130s 4) Pseudobulbar affect -The pt cannot communicate and exhibited disruptive behavior on admission. This was apparently her baseline -We continued Depakote and Nuedexta and one to one observations 5) HTN -BP's were stable. We continued atenolol 25 mg, Lisinopril 5 mg daily 6) Hypothyroidism -We continued levothyroxine 100 mcg daily 7) Depression/Anxiety -We continued sertraline 50 mg daily 8) UTI -urine cx showed E. Coli and IV rocephin was started. Pt will be d/c with keflex DVT Prophylaxis was with SCDs, TEDs. At time of d/c, pt had no other acute concerns or complaints. Total Time Total Time Spent Total Time Spent (In Minutes): <30 Discharge Plan Discharge Items Patient Disposition: Transfer Halfway Fac Reason For Visit: HIP FRACTURE HYPONATREMIA Discharge Diagnosis: R hip fracture Discharge Goals: Decrease discomfort and Improve function Activity: Per 'Additional Instructions' section Non-emergency contact: Primary Care Provider Call non-emergency contact if: your pain is not controlled and your temperature is above 101.5 Diet: Heart Healthy Addtl Provider Instructions: You were admitted for a R hip fracture, which was surgically repaired. Please follow the below instructions on discharge: -Continue to take your pain medications as needed -Continue to work with PT/OT on discharge to help you regain strength -If you have symptoms of lightheadedness/dizzyness please tell your doctor and they will check your blood levels to see if you are anemic -Your doctor at [facility] will follow-up with you for all other medical issues [facility] DISCHARGE INSTRUCTIONS: HIP FRACTURE SELF CARE INSTRUCTIONS: A. You are to ambulate with a walker or crutches for approximately 6 weeks. B. You are WEIGHT BEARING TOLERATE on your operative lower extremity C. Wear low heeled shoes with non-slip soles D. Be sure that your floors are free of things that could trip you throw rugs, electrical cords, and small objects. Avoid wet and waxed floors, especially with crutches/walker/cane. E. Try to walk several times a day with rest periods between. F. You may shower 48 hours after surgery and get the incision area wet, but DO NOT soak or submerge incision area in water. (No baths, swimming pools, hot tubs ) You CAN shower with this on. If incision is leaking through the dressing, please call the office . H. Do NOT apply soap or any ointment/lotions directly over incision. I. You may use ice as needed to operative site. SPECIAL CARE INSTRUCTIONS: VERY IMPORTANT TO READ AND REVIEW A. You may be at risk for phlebitis or blood clots. a. Wear surgical stockings (MELVIN hose) for 2 weeks after surgery to improve circulation and reduce swelling. B. There are a few signs you need to watch for after you are home. Call [facility] at [phone] if you experience any of the following: a. If you have a temperature of 101 degrees or higher. b. Sudden increase in pain in your hip not relieved by rest or pain medication. c. Any fluid or drainage from the incision; redness of the incision. d. Shortness of breath or chest pain. B. Please call [facility] at [phone] if you have any questions or concerns about your operation or recovery. C. Call your physician if: a. Temperature is greater than 101 degrees (F). b. Pain is not relieved by prescribed pain medications. c. Increase drainage or redness from incision. d. Unanswered questions or concerns. D. Pain Medication: a. You will be prescribed pain medication upon discharge that should last till your first post-operative appointment. b. If you experience nausea and/or skin rash, discontinue this medication and contact our office for an alternative medication. c. Caution- narcotic pain medication can cause constipation. FOLLOW UP VISIT: Please call [facility] at [phone] to schedule a follow up appointment 10-14 days from the date of your surgery date. Prescriptions: New tramadol [Ultram] 50 mg tablet 50 mg PO Q4 PRN (Reason: pain) Qty: 30 RF: 0 Continue acetaminophen 325 mg Tablet 650 mg PO TID PRN (Reason: Pain) RF: 0 divalproex [Depakote] 250 mg Tablet,Delayed Release (Dr/Ec) 250 mg PO BID RF: 0 meloxicam [Mobic] 15 mg Tablet 15 mg PO DAILY RF: 0 atenolol 25 mg Tablet 25 mg PO DAILY RF: 0 aspirin [Aspirin Low Dose] 81 mg Tablet,Delayed Release (Dr/Ec) 81 mg PO DAILY RF: 0 levothyroxine 100 mcg Tablet 100 mcg PO DAILY RF: 0 divalproex [Depakote] 125 mg Tablet,Delayed Release (Dr/Ec) 125 mg PO DAILY RF: 0 sertraline [Zoloft] 25 mg Tablet 50 mg PO DAILY RF: 0 lisinopril 5 mg Tablet 5 mg PO DAILY RF: 0 cholestyramine (with sugar) [Questran] 4 gram Powder In Packet 4 g PO DAILY RF: 0 cholecalciferol (vitamin D3) [Vitamin D3] 2,000 unit Tablet 2,000 unit PO DAILY RF: 0 dextromethorphan-quinidine [Nuedexta] 20-10 mg Capsule 1 cap PO Q12H RF: 0 lactobacillus combination no.4 [Probiotic] 3 billion cell Capsule 1 tab PO DAILY RF: 0 Stand-Alone Forms: [facility] Discharge Orders: Discharge Order (Routine); Ordered 06/14/18 Ordered By: Steve Burr Skilled Items Patient informed of condition?: Yes DNR: Yes Discharge Level of Care: Skilled Communicable Disease: No Discharge Prognosis: Stable Admission Data Admit Date/Time: 06/11/18 18:59 Attending Provider: Vinod Dsouza Admit Provider: Puneet Andrews Primary Care Provider: Prashant Linton Other Providers: Zackary Morrow ; Puneet Andrews ; Kerry Parisi Service: Medical Other Interventions: Discharge Summary Assessment (RN) Last Done: 06/14/18 14:17 DC Date/Time DO NOT enter until pt leaves facility: 06/14/18 15:05 Supervising Physician Co-Signing Physician Notes I personally examined the patient and verified all carpio points of history and exam, discussed case, and agree with decision making with Dr Burr. Feeling good, denies hip pain. No problems noted from nursing Vitals noted, in general she is awake and alert no distress. HEENT normocephalic atraumatic mucous membranes are moist. Skin shows no rashes maybe mild pallor or icterus. Hip fracture�(possibly osteoporotic) continue pain control and supportive care. Continue to supplement vitamin D. Consider empiric treatment of osteoporosis versus DEXA scan, will defer to PCP in this regard. Fever/UTI�ceftriaxone used while in the hospital, will finish out treatment with an oral cephalosporin Anemia�acute blood loss related to hip fracture, transfused 1 unit no more stable Otherwise as above. Stable for SNF Resident Activity Tracking Resident Involvement: Resident Care Provided Care Provided: Adult Hospital Medicine
[2018-06-14] MEDS: CHOLESTYRAMINE LIGHT 4 GM PKT PO SCH (10:24)
[2018-06-14] MEDS: cefTRIAXone SODIUM 1,000 MG in DEXTROSE 5% 50 ML IV SCH (13:46)
[2018-06-15] MEDS ORDERED: ENOXAPARIN INJ 40 MG/0.4 ML SYR SQ SCH (09:00)
== END 2018-06-14 15:05 | DRG 481 ==
LOC: ED 16:14 → SUATTDRO 18:59 → 3N 18:59